=== PATIENT | female | born 1950 | race African-American/Black ===

== ENCOUNTER 2021-08-16 11:47 | Outpatient (CLI) | payer MEDICARE, SELFPAY ==
--- NOTE | 2021-08-16 | ECG_ITS ---
Measurements Intervals Clark Rate: 96 P: 21 CT: 205 QRS: -50 QRSD: 115 T: 63 QT: 382 QTc: 484 Interpretive Statements SINUS RHYTHM LEFT ANTERIOR FASCICULAR BLOCK VOLTAGE CRITERIA FOR LVH MINIMAL Q WAVES- HIGH LATERAL LEADS ABNORMAL ECG Electronically Signed On 08-16-2021 13:31:37 PUMP ERECTOR by Florencio Barker D.O.
== END 2021-08-16 11:48 | disposition home or self-care (01) ==
PROVIDERS: PCP Family Medicine; Visit Provider Orthopaedic Surgery
DX: M17.12 Unilateral primary osteoarthritis, left knee (principal); Z01.818 Encounter for other preprocedural examination; I44.4 Left anterior fascicular block
CPT/HCPCS: 93005

== ENCOUNTER 2021-08-29 14:53 | Outpatient (CLI) | payer MEDICARE, SELFPAY ==
--- NOTE | ~2021-08-29 | XR_ITS ---
EXAMINATION: XR shoulder RT min 2V DATE: 08/29/2021 15:17 INDICATION: Right shoulder pain. TECHNIQUE: 4 views of right shoulder were obtained. COMPARISON: None. FINDINGS: Bone alignment is normal. No fracture. There is mild osteoarthritis of glenohumeral joint a nd severe osteoarthritis of acromioclavicular joint. There is a loose body in the glenohumeral joint. IMPRESSION: 1. Polyarticular osteoarthritis. 2. Loose body in glenohumeral joint. Reviewed, dictated and finalized at location A. CLEANER OPERATOR
== END 2021-08-29 14:54 | disposition home or self-care (01) ==
PROVIDERS: PCP Family Medicine; Visit Provider Physician Assistant
DX: M19.011 Primary osteoarthritis, right shoulder (principal); M24.011 Loose body in right shoulder
CPT/HCPCS: 73030

== ENCOUNTER 2021-09-26 10:25 | Outpatient (CLI) | payer MEDICARE, SELFPAY ==
--- NOTE | ~2021-09-26 | XR_ITS ---
EXAMINATION: XR lumbar spine min 4V DATE: 09/26/2021 11:05 INDICATION: Sciatica, unspecified site, low back pain TECHNIQUE: Anteroposterior, lateral, and bilateral oblique views of the lumbar spine, and cone-down l ateral view of the lumbosacral junction were obtained. COMPARISON: None. FINDINGS: There are 4 mm of anterolisthesis of L4 on L5. Vertebral body alignment is otherwise mainta ined. There is severe loss of intervertebral disc space height from L2-3 through L5-S1. The vertebral body heights are maintained. There is severe facet osteoarthritis throughout the lumbar spine. No fr acture is identified. Small degenerative osteophytes project from the anterior endplates of multiple vertebral bodies. Surgical clips in the right upper quadrant are likely from prior cholecystectomy. IMPRESSION: 1. Severe lumbar spondylosis without acute findings. Reviewed, dictated and finalized at location B. HNUT DOUGH MIXER
--- NOTE | ~2021-09-26 | XR_ITS ---
EXAMINATION:XR cervical spine 4-5V DATE: 09/26/2021 11:05 INDICATION: Cervical radiculopathy TECHNIQUE: AP, lateral, lateral swimmers and odontoid views of the cervical spine are provided. COMPARISON: None FINDINGS: There are 3 mm of anterolisthesis of C3 on C4 and 3 mm of retrolisthesis of C5 on C6. There is severe loss of intervertebral disc space height from C3-4 through C7-T1. The vertebral body heigh ts are maintained. No fracture is identified. There is severe multilevel facet and uncovertebral join t osteoarthritis. IMPRESSION: 1. Severe cervical spondylosis without acute findings. Reviewed, dictated and finalized at location B. SFER MAN
== END 2021-09-26 10:26 | disposition home or self-care (01) ==
PROVIDERS: PCP Family Medicine; Visit Provider Family Medicine
DX: M54.30 Sciatica, unspecified side (principal); M47.22 Other spondylosis with radiculopathy, cervical region; M47.896 Other spondylosis, lumbar region
CPT/HCPCS: 72050; 72110

== ENCOUNTER 2021-10-10 00:09 | Day surgery (SDC) | payer MEDICARE, SELFPAY ==
[2021-09-29 13:12] VITALS: BMI 33.5
[2021-10-10 07:43] VITALS: BP 125/64; PULSE 86; RESP 16; TEMP 36.3; O2SAT 99; BMI 32.0
[2021-10-10] MEDS: LACTATED RINGERS 1,000 ML 150 ML IV CONT (08:05)
--- NOTE | 2021-10-10 08:06 | P.PNAN_ITS ---
Anes - Initial Pre Proc Eval Procedure: Operation Date: 10/10/21 09:00 Proposed Procedures p Screening Colonoscopy - Nasir Wilkerson MD Date/Time: 10/10/21 08:06 Surgeon: Nasir Wilkerson MD Pre Op Diagnosis: neoplasm screening Patient Data Age: 71 Gender: F Height: 1.73 m Weight: 95.6 kg Last Vital Signs Temp 36.3 C L 10/10/21 07:43 Pulse 86 10/10/21 07:43 Resp 16 10/10/21 07:43 BP 125/64 10/10/21 07:43 Pulse Ox 99 10/10/21 07:43 Allergies Allergy/AdvReac Type Severity Reaction Status Date / Time No Known Allergies Allergy Verified 10/10/21 07:54 Home Medications Medication Instructions Recorded Confirmed Type meloxicam 15 mg tablet 15 mg PO DAILY #90 tablet 06/12/21 10/10/21 Rx triamterene 37.5 1 tablet PO QAM #90 tablet 06/12/21 10/10/21 Rx mg-hydrochlorothiazide 25 mg tablet gabapentin 300 mg capsule 600 mg PO DAILY #90 cap 09/26/21 10/10/21 Rx hydrocodone 5 mg-acetaminophen 325 1 tablet PO Q8H PRN #21 tablet 09/26/21 10/10/21 Rx mg tablet Patient hx anesthesia problems: none Family hx anesthesia problems: none Results Review: All pre-operative results and documents have been reviewed as part of the pre-operative evaluation. [facility] Past Medical History Medical History Encounter for immunization Fatigue Hypertension Knee osteoarthritis Nail deformity Obesity (BMI 30-39.9) Sciatica Seborrheic keratosis Family History Family History Father Family history of emphysema Patient's father is Mother Patient's mother is Unknown Hypertension Social History Social History Smoking status: Never smoker Second hand tobacco smoke exposure: No Alcohol intake: never Substance use: never Substance use type: does not use Living arrangements: with family Gender identity (if verbalized by the patient): Female Spiritual care concerns: No Anes - Eval Final PreProcedure Day of Procedure 10/10/21 08:06 Patient weight: obese Heart: regular rate and rhythm Lungs: clear to auscultation Airway: Mallampati scale class II Neurological: alert and oriented Last oral intake: >/= 8 hours ASA classification: II Emergent: no Anesthetic plan: proceed Anesthesia type and monitoring: general GIVS and standard monitoring Results Review: All pre-operative results and documents have been reviewed as part of the pre-operative evaluation. Informed Consent: The patient's anesthetic plan and its attendant risks and benefits were discussed with the patient/family/POA. Questions were solicited and answers provided to the satisfaction of the patient/family/POA.
--- NOTE | 2021-10-10 09:00 | PM.HPGS ---
History of Present Illness History of Present Illness Consent: Risks, benefits, and alternatives have been discussed and questions answered. Patient agrees to proceed with procedure. Chief complaint: neoplasm screening Narrative: Dang Ibrahim is a 71 year old female here for screening colonoscopy, last one about 10 years ago Review of Systems Constitutional: Constitutional: Denies headache(s) and Denies weakness Eyes: Eyes: Denies blurry vision ENT: Reports Normal hearing present, Denies headache(s) and Denies neck pain Cardiovascular: Cardiovascular: Denies chest pain and Denies dyspnea Respiratory: Respiratory: Denies dyspnea Gastrointestinal: Gastrointestinal: Reports no additional gastrointestinal complaints Genitourinary: Genitourinary: Denies dysuria Musculoskeletal: Musculoskeletal: Denies neck pain Integumentary/Breasts: Skin/Breast: Denies dry skin Neurologic: Reports Normal hearing present, Denies headache(s) and Denies weakness Psychiatric: Psychiatric: Denies anxiety Endocrine: Endocrine: Denies change in body appearance Hematologic/Lymphatic: Hematologic/Lymphatic: Denies easy bleeding Allergic/Immunologic: Allergic/Immunologic: Denies urticaria PMFSH Past Medical History Medical History Encounter for immunization Fatigue Hypertension Knee osteoarthritis Nail deformity Obesity (BMI 30-39.9) Sciatica Seborrheic keratosis Family History Family History Father Family history of emphysema Patient's father is Mother Patient's mother is Unknown Hypertension Social History Social History Smoking status: Never smoker Second hand tobacco smoke exposure: No Alcohol intake: never Substance use: never Substance use type: does not use Living arrangements: with family Gender identity (if verbalized by the patient): Female Spiritual care concerns: No Meds Home Medications and Allergies Home Medications Medication Instructions Recorded Confirmed Type meloxicam 15 mg tablet 15 mg PO DAILY #90 tablet 06/12/21 10/10/21 Rx triamterene 37.5 1 tablet PO QAM #90 tablet 06/12/21 10/10/21 Rx mg-hydrochlorothiazide 25 mg tablet gabapentin 300 mg capsule 600 mg PO DAILY #90 cap 09/26/21 10/10/21 Rx hydrocodone 5 mg-acetaminophen 325 1 tablet PO Q8H PRN #21 tablet 09/26/21 10/10/21 Rx mg tablet Allergies Allergy/AdvReac Type Severity Reaction Status Date / Time No Known Allergies Allergy Verified 10/10/21 07:54 Vital Signs Vital Signs - 24 hr 10/10/21 07:43 Temperature 97.4 F L Pulse Rate 86 Respiratory Rate 16 Blood Pressure 125/64 Pulse Oximetry 99 Exam Const: General: comfortable and no acute distress HENMT: General nose exam: Normal nares present Eyes: General: appearance normal, both eyes and all related structures Neck: Neck: no JVD Resp: Auscultation: clear to auscultation bilaterally Cardio: Rate: regular rate Rhythm: regular rhythm GI: Inspection: non-distended GI Palp: Yes Soft to palpation Skin: General skin exam: normal color Neuro: General: gait normal Speech: normal speech Extrem: General: normal to inspection Psych: Mental Status: mental status grossly normal Assessment and Plan Assessment and plan (1) Encounter for screening for malignant neoplasm of colon: Code(s): Z12.11 - Encounter for screening for malignant neoplasm of colon Status: Acute Assessment and Plan: colonoscopy
[2021-10-10 09:20] VITALS: BP 109/58; PULSE 80; RESP 20; O2SAT 96
[2021-10-10 09:30] VITALS: BP 117/70; PULSE 70; RESP 20; O2SAT 97
[2021-10-10 09:40] VITALS: BP 126/71; PULSE 65; RESP 21; O2SAT 100
== END 2021-10-10 09:51 | disposition home or self-care (01) ==
PROVIDERS: PCP Family Medicine; Visit Provider Internal Medicine Gastroenterology
PROC: 0DJD8ZZ Inspection of Lower Intestinal Tract, Via Natural or Artificial Opening Endoscopic (ICD-10-PCS; CPT 45378; principal; 2021-10-10 09:00)
DX: Z12.11 Encounter for screening for malignant neoplasm of colon (principal); K57.30 Diverticulosis of large intestine without perforation or abscess without bleeding; K64.8 Other hemorrhoids; R53.83 Other fatigue; I10 Essential (primary) hypertension; L82.1 Other seborrheic keratosis; E66.9 Obesity, unspecified; Z68.32 Body mass index [BMI] 32.0-32.9, adult; M17.10 Unilateral primary osteoarthritis, unspecified knee
CPT/HCPCS: G0121; J2704; J7120

== ENCOUNTER 2021-10-11 10:06 | Outpatient (CLI) | payer MEDICARE, SELFPAY ==
[2021-10-11 11:15] LABS: Basophils Absolute Auto 0.1 K/mm3 (0.0-0.1); Basophils Percent Auto 0.5 % (0.2-1.2); Eosinophils Absolute Auto 0.2 K/mm3 (0-0.3); Eosinophils Percent Auto 1.5 % (0-4.4); Hematocrit 36.9 % (37.0-47.0); Hemoglobin 12.2 g/dL (12.0-15.0); Immature Granulocyte Absolute 0.03 K/mm3 (0.00-0.031); Immature Granulocyte Percent A 0.3 % (0-0.5); Lymphocytes Absolute Auto 2.93 K/mm3 (0.9-3.2); Lymphocytes Percent Auto 27.6 % (18.3-44.2); Mean Corpuscular HGB Conc 33.1 g/dl (32-36); Mean Corpuscular Volume 90.9 fl (80-100); Mean Platelet Volume 9.2 fl (7.4-10.4); Monocytes Absolute Auto 0.7 K/mm3 (0.1-0.6); Monocytes Percent Auto 6.7 % (2.6-8.5); Neutrophils Absolute Auto 6.7 K/mm3 (1.3-6.7); Neutrophils Percent Auto 63.4 % (45.5-73.1); Platelet Count Result 292 k/mm3 (150-375); Red Blood Count 4.06 M/mm3 (4.2-5.4); White Blood Count 10.6 K/mm3 (4.5-10.0)
[2021-10-11 11:25] LABS: Albumin Level 4.3 g/dL (3.5-5.1)
[2021-10-11 11:27] LABS: Anion Gap 6 mmol/L (8-16); Blood Urea Nitrogen 20 mg/dL (7-17); Calcium 9.5 mg/dL (8.4-10.2); Carbon Dioxide 33 mmol/L (22-30); Chloride 101 mmol/L (98-107); Estimated Glomerular Filt Rate 59; Glucose 97 mg/dL (65-110); Potassium 3.5 mmol/L (3.4-5.0); Sodium 140 mmol/L (137-145)
[2021-10-11 11:27] LABS: Urine Cotinine NEGATIVE
== END 2021-10-11 10:07 | disposition home or self-care (01) ==
LOC: ANHSURGERY 10:09
PROVIDERS: Anesthesiology; PCP Family Medicine; Visit Provider Orthopaedic Surgery
DX: M17.12 Unilateral primary osteoarthritis, left knee (principal); I10 Essential (primary) hypertension; Z01.818 Encounter for other preprocedural examination
CPT/HCPCS: 36415; 80048; 80307; 82040; 83036; 85025; 87081

== ENCOUNTER 2021-11-08 15:36 | Observation (INO) | payer MEDICARE, SELFPAY ==
[2021-10-11 10:15] VITALS: BMI 35.2
--- NOTE | 2021-10-11 10:35 | PC.NURSE ---
Report to the Outpatient Waiting Room, entrance under the green pavilion located off [facility], at time __0900 on date __11/07/21 . OR Time: _1100 . - You and your visitor will be asked a series of questions to screen for COVID 19 for your protection. - A mask is required within the hospital. Preoperative COVID Testing Requirements: No COVID Test needed if: (proof is required; if not received patient will have Rapid Test prior to entry) - Patient has received COVID Vaccine at least 14 days prior to procedure date or - Patient has positive COVID test result within last 90 days of surgery date. COVID Test needed if above criteria is not met If not COVID vaccinated a COVID test must be conducted within 72 hours of surgery and patient is asked to isolate self from time of testing until procedure. You will go to the [facility] for your COVID testing. The [facility] site is located at the corner of [address] [facility]. You will only be called if COVID results are positive and your surgeon may reschedule your elective surgery date. Patients may have clear liquids (water, carbonated beverages, clear teas, apple juice) until 3 hours prior to surgery with a maximum of 20 ounces. - No food from midnight until time of surgery - Infants may have breast milk until 4 hours before surgery, infant formula 6 hours prior to surgery. - Children will be allowed to drink immediately following surgery. If applicable, please bring a bottle or sippy cup to assist with drinking. Juice, water, soda, and popsicles are readily available. For infants on formula, please bring formula the day of surgery. Pacifiers are allowed. Take the following medications with a SIP of water the morning of surgery: _NONE Medications to discontinue per physician ____MELOXICAM 7 DAYS PRE OP,ALL VITAMINS AND SUPPLEMENTS 3 DAYS PREOP Date to take last dose__MELOXICAM 10/30/21____ALL VITAMINS 11/03/21 Please no make-up, nail malaysian, hairspray, perfume, deodorant, or body powder the day of surgery. No jewelry (including any body piercings) or valuables the day of surgery, leave them at home. Please take a shower or bath the night before, or the morning of, surgery with an antibacterial soap. Wear comfortable, loose fitting clothing. Children are encouraged to wear pajamas. - Jewelry must be removed prior to entering the operating room. Rings and piercings that are not removed may be cut off. - The hospital will not accept responsibility for valuables. - Please leave all valuables, including medications, at home the day of surgery. If you are going home after surgery, a licensed dump truck driver must drive you home. - NO public transportation without another adult. - We recommend that an adult stay with you for 24 hours following discharge. - We also recommend that you do not drive, make important decision, drink alcoholic beverages, or take any drugs that were not prescribed by your health care provider for at least 24 hours after your discharge time. For Pediatric surgeries, we recommend two adults accompany the child home (only one inside the building at this time). One visitor will be allowed to accompany the patient into the hospital. Patients visitor will be instructed to remain with patient at all times or leave the building. We will allow the visitor to come back to the postoperative area when patient is ready. Follow any additional instructions given to you from your surgeon. VERBAL AND WRITTEN instructions given to _PATIENT and asked if any additional questions and then verbalized understanding. Patient advised to call surgeon office or pre surgery nurse liaison [phone] if any additional questions.
[2021-10-11 10:55] VITALS: BP 125/65; PULSE 74; RESP 18; TEMP 36.6; O2SAT 97
--- NOTE | 2021-11-06 14:22 | WPDANESEPPF ---
Anes - Initial Pre Proc Eval Procedure: Operation Date: 11/07/21 11:00 Proposed Procedures p Left Total Knee Arthroplasty - Reagan Winter MD <Marcelo Craig MD - Last Filed: 11/07/21 10:34> Date/Time: 11/06/21 14:22 <Marcelo Craig MD - Last Filed: 11/07/21 10:34> Surgeon: Reagan Winter MD <Marcelo Craig MD - Last Filed: 11/07/21 10:34> Pre Op Diagnosis: Prim O.A. Lt Knee <Marcelo Craig MD - Last Filed: 11/07/21 10:34> Patient Data Age: 71 Gender: F Height: 1.65 m Weight: 96 kg <Marcelo Craig MD - Last Filed: 11/07/21 10:34> Last Vital Signs Temp 36.6 C 10/11/21 10:55 Pulse 74 10/11/21 10:55 Resp 18 10/11/21 10:55 BP 125/65 10/11/21 10:55 Pulse Ox 97 10/11/21 10:55 <Marcelo Craig MD - Last Filed: 11/07/21 10:34> Allergies Allergy/AdvReac Type Severity Reaction Status Date / Time No Known Allergies Allergy Verified 11/07/21 10:05 <Marcelo Craig MD - Last Filed: 11/07/21 10:34> Home Medications Medication Instructions Recorded Confirmed Type meloxicam 15 mg tablet 15 mg PO DAILY #90 tablet 06/12/21 11/07/21 Rx triamterene 37.5 1 tablet PO QAM #90 tablet 06/12/21 11/07/21 Rx mg-hydrochlorothiazide 25 mg tablet hydrocodone 5 mg-acetaminophen 325 1 tablet PO Q8H PRN #21 tablet 09/26/21 11/07/21 Rx mg tablet gabapentin 600 mg PO HS 10/11/21 11/07/21 History [id number]-calcium carb-K1 1 tablet PO DAILY 10/11/21 11/07/21 History [One-A-Day Women's 50 Plus] terbinafine HCl 250 mg PO MONTHLY 10/11/21 11/07/21 History <Marcelo Cragi MD - Last Filed: 11/07/21 10:34> Patient hx anesthesia problems: none <Albert Kimble DO - Last Filed: 11/07/21 10:20> Family hx anesthesia problems: none <Albert Kimble DO - Last Filed: 11/07/21 10:20> Results Review: All pre-operative results and documents have been reviewed as part of the pre-operative evaluation. <Marcelo Craig MD - Last Filed: 11/07/21 10:34> [facility] Past Medical History Medical History: Medical History (Updated 11/06/21 @ 14:23 by Marcelo Craig MD) Chronic narcotic use Encounter for immunization Fatigue Hypertension Knee osteoarthritis Nail deformity Obesity (BMI 30-39.9) Sciatica Seborrheic keratosis <Marcelo Craig MD - Last Filed: 11/07/21 10:34> Family History Family History: Family History Father Family history of emphysema Patient's father is Mother Patient's mother is Unknown Hypertension <Marcelo Craig MD - Last Filed: 11/07/21 10:34> Social History Social History: Social History Smoking status: Never smoker Second hand tobacco smoke exposure: No Additional smoking assessment comments: DENIES ANY FORM OF TOBACCO USE Alcohol intake: never Substance use: never Substance use type: does not use Living arrangements: alone Gender identity (if verbalized by the patient): Female Spiritual care concerns: No <Marcelo Craig MD - Last Filed: 11/07/21 10:34> Anes - Eval Final PreProcedure Day of Procedure 11/06/21 14:22 <Marcelo Craig MD - Last Filed: 11/07/21 10:34> Patient weight: obese <Marcelo Craig MD - Last Filed: 11/07/21 10:34> Heart: regular rate and rhythm <Marcelo Craig MD - Last Filed: 11/07/21 10:34> Lungs: clear to auscultation and normal air movement <Marcelo Craig MD - Last Filed: 11/07/21 10:34> Airway: Mallampati scale class II <Marcelo Craig MD - Last Filed: 11/07/21 10:34> Neurological: alert and oriented <Marcelo Craig MD - Last Filed: 11/07/21 10:34> Last oral intake: >/= 8 hours <Marcelo Craig MD - Last Filed: 11/07/21 10:34> ASA classification: III <Marcelo Echevarria
--- NOTE | 2021-11-06 14:23 | WPDANESPNB ---
Anes - Peripheral Nerve Block Date/Time: 11/06/21 14:23 I have discussed with the patient/family/POA the placement of a peripheral nerve block for post-operative pain management, including associated risks, benefits, complications, and side effects. Alternative methods of post-operative analgesia were detailed. Questions were solicited and answers provided to the satisfaction of the patient/family/POA. Time-Out: A pre-procedural Time-Out was completed immediately before starting the procedure and confirmed: Patient Identification, Site, Procedure, Patient Position and the Availability of Requisite Equipment. Clinical Indications: Acute post-operative pain management requested by the operative surgeon. Nerve Block Insertion Note Anes-nerve block: adductor canal left Patient position: supine Skin prep: chlorhexidine Needle: 22 gauge, stimulating, insulated echogenic needle. Needle length: 80 mm Technique: ultrasound Technique comment: in plane Injectate: bupivacaine 0.5% with epi 5 mcg/ml (30cc) Observations: tolerated well Complications: none Procedure start time:: 1040 Procedure end time:: 104
[2021-11-07] VITALS (15 sets, daily range): BP systolic 124–161; BP diastolic 63–82; PULSE 76–111; RESP 12–17; TEMP 35.8–37.2; O2SAT 94–100
--- NOTE | 2021-11-07 07:19 | WPDHPUPDATE1 ---
History and Physical Update Update Date/Time: 11/07/21 07:19 History and Physical has been reviewed, including an updated exam of the patient. There are NO changes in the patient's condition. Risks, benefits, and alternatives have been discussed and questions answered. Patient agrees to proceed with procedure.
[2021-11-07] MEDS: ACETAMINOPHEN 500 MG TABLET 1000 MG PO (10:17)
[2021-11-07] MEDS: LACTATED RINGERS 1,000 ML 30 ML IV CONT ×2 (10:25→14:26)
[2021-11-07] MEDS: TRANEXAMIC ACID 1,000MG/ISO100 1,000 MG/100 ML BAG 200 MG IVPB (10:35)
[2021-11-07] MEDS: ceFAZolin 2 GM/D5W 50 ML 2 GM/50 ML BAG IVPB ×2 (10:54→18:35)
[2021-11-07] MEDS: fentaNYL CITRATE INJ (*CRX) 100 MCG/2 ML VIAL 25 MCG IV PUSH (14:36)
--- NOTE | 2021-11-07 15:34 | ADMGEN ---
This patient, Dang Ibrahim, was admitted to -. Patient/family oriented to hospital policies and general routines including ID bracelet, bed and alarms, visiting hours, pain management, procedures, bathroom and other care routines, personal items, smoking policy, room service/diet, and visiting hours. Information on how to activate the Rapid Response Team has been discussed. Patient/Family are encouraged to report perceived risks to care and to ask questions if they do not understand what they are told or what they should do.
[2021-11-07] MEDS: SODIUM CHLORIDE 0.9% IV 1,000 ML 125 ML IV CONT (15:46)
--- NOTE | 2021-11-07 16:02 | W.PM.PROC2 ---
Procedure Note - Detailed Date of Procedure 11/07/21 Pre-op Diagnosis Osteoarthritis left knee. Post-op Diagnosis Same Procedure Performed Left total knee arthroplasty. Surgeon Reagan Winter MD Resident Engineer Marcella Cuevas PA-C Anesthesia General Indications End-stage arthritis of the knee with severe varus deformity and proximal medial tibial bone loss. Findings Complex reconstruction. Severe contracture 10? to 90?. Varus deformity 15?. Extensive osteophytes. Large cystic changes in the femoral condyles and medial tibia. Extensive posterior medial and medial tibial erosion. 5 mm augments required medial. 50 mm stems both on the femur and tibia due to the significant bony changes and cystic disease. Extensive medial release required. Total stabilized tibial insert used. Description of Procedure The patient was given a nerve block preoperatively, and then brought to the operating room. A general anesthetic was administered. The leg was prepped and draped in the usual sterile fashion. The limb was elevated and the tourniquet inflated to 300 mmHg during the procedure. A longitudinal incision was created along the medial border of the patella and patellar tendon, and a trivector approach to the knee was performed. A large medial release was taken. The knee was then flexed. The osteophytes were carefully removed. The intramedullary guide was placed in the femoral canal. The distal femoral resection was then taken with the oscillating saw. The collateral ligaments were carefully protected. The tibia was carefully exposed. The jig was applied, and the proximal tibia was resected according to the preoperative plan, with a medial 5mm step cut to account for the medial bone loss, and necrotic /sclerotic bone. The knee was balanced in extension. The anterior cruciate ligament and meniscal remnants were removed. The posterior cruciate ligament was sacrificed. The patella was measured. Patellar resection was carried out with the oscillating saw. The femur was sized and rotation assessed using a combination of gap balancing, posterior referencing, and the AP axis. The 4 in 1 cutting block, and the box cut guide were used to finish the femoral cuts after equal gaps were assured. The femur was reamed for the cement stems. The osteophytes were carefully removed from the back of the knee. The knee was copiously irrigated with antibiotic solution periodically throughout the procedure. The meniscal remnants were removed. The spacer block was used to confirm equal flexion and extension gaps. Extensive medial release was required. The tibia was sized and broached. Central drilling for the short stem was performed. The bony surfaces were prepared for cementing with pulsatile lavage. The real tibial was cemented, followed by the femoral, and patellar components. Excess cement was carefully removed. Patellar tracking was carefully assessed. No additional releases were required. The real poly insert was placed. The wound was closed with #1 Vicryl suture, #2 Quill suture, 0-Quill suture, and 2-0 Quill suture followed by Steri-Strips. A sterile bulky dressing was applied. Meticulous hemostasis was maintained throughout the procedure. There were no complications. The patient was extubated and brought to the recovery room in stable condition after the application of sterile dressing with Rob bandage. Implants TrackVia Triathlon knee system, [place] base plate cemented tibia size 5, Posterior cruciate stabilized cemented femoral component size 5 ,and an 13 mm total stabilized polyethylene insert. 35mm polyethylene patella component. 50 mm stem, 12 mm diameter, for the femur and tibia. 5 mm titanium metal augment for the medial tibia. Estimated Blood Loss 100 Drains No Packing No Pathology None sent Complications No immediate complications Condition Stable Disposition PACU
[2021-11-07] MEDS: SENNA/DOCUSATE SODIUM TABLET 2 TAB PO (17:33)
[2021-11-07] MEDS: ASPIRIN 81 MG ENTERIC TABLET PO (17:33)
[2021-11-07] MEDS: GABAPENTIN 300 MG CAPSULE 600 MG PO (20:49)
--- NOTE | ~2021-11-08 | XR_ITS ---
EXAMINATION: XR chest 1V portable DATE: 11/09/2021 12:48 INDICATION: Fever. TECHNIQUE: A single frontal view of the chest was obtained. COMPARISON: None. FINDINGS: There is mild atelectasis in right lower lung zone. No pleural effusion or pneumothorax. Th e heart size is normal. IMPRESSION: 1. Mild atelectasis in right lower lung zone. Reviewed, dictated and finalized at location B.
--- NOTE | ~2021-11-08 | CT_ITS ---
EXAMINATION: CTA chest PE protocol DATE: 11/09/2021 17:53 INDICATION: Tachycardia, fever TECHNIQUE: Computed tomography angiography (CTA) of the chest was performed with 100 mL Omnipaque-350 intravenous contrast timed to evaluate the pulmonary arteries. Coronal maximum intensity projection 3D-reconstructions were created by the technologist. The dose-length product (DLP) was 552.49 mGy-cm. Automated exposure control and iterative reconstruction technique were employed. COMPARISON: None. FINDINGS: The pulmonary arteries are well-opacified. No pulmonary embolism is identified. There is mi ld atelectasis in the right lower lobe. There is no pleural effusion or pneumothorax. No pathological ly enlarged thoracic lymph nodes are identified. The heart size is normal. IMPRESSION: 1. No pulmonary embolus identified. Reviewed, dictated and finalized at location F.
--- NOTE | ~2021-11-08 | US_ITS ---
EXAMINATION: US venous doppler LE EXAM DATE: 11/09/2021 11:08 INDICATION: Tachycardia. TECHNIQUE: Multiple grayscale, color flow and Doppler images of the lower extremity deep venous syste ms bilaterally were obtained and reviewed. There is no prior study for comparison. FINDINGS: Right side: The right common femoral, femoral and profunda veins demonstrate normal color flow, respi ratory variation, augmentation and compressibility. Compressibility, color flow confirmed within the right popliteal, posterior tibial, peroneal, and greater saphenous veins. Left side: The left common femoral, femoral and profunda veins demonstrate normal color flow, respira tory variation, augmentation and compressibility. Compressibility, color flow confirmed within the l eft popliteal, posterior tibial, peroneal, and greater saphenous veins. IMPRESSION: 1. No lower extremity deep venous thrombosis bilaterally. Reviewed, dictated and finalized at location A.
--- NOTE | ~2021-11-08 | XR_ITS ---
EXAMINATION: XR knee LT 2V DATE: 11/07/2021 14:35 INDICATION: Total left knee arthroplasty. Postop. TECHNIQUE: 2 views of left knee were obtained. COMPARISON: Left knee radiographs 05/29/2021 FINDINGS: There is a total left knee arthroplasty with patellar resurfacing in near-anatomic alignmen t. No fracture. There is gas in the knee joint and soft tissues, consistent with recent surgery. IMPRESSION: 1. Total left knee arthroplasty in near-anatomic alignment. Reviewed, dictated and finalized at location B.
[2021-11-08] MEDS: ceFAZolin 2 GM/D5W 50 ML 2 GM/50 ML BAG IVPB ×2 (01:54→10:31)
[2021-11-08 03:34] VITALS: BP 118/61; PULSE 98; RESP 17; TEMP 36.4; O2SAT 97
[2021-11-08] MEDS: oxyCODONE HCL (*CRX) 5 MG TAB IR PO ×2 (07:50→12:17)
[2021-11-08] MEDS: MELOXICAM 7.5 MG TABLET 15 MG PO (07:51)
[2021-11-08] MEDS: ASPIRIN 81 MG ENTERIC TABLET PO ×2 (07:51→16:36)
[2021-11-08] MEDS: SENNA/DOCUSATE SODIUM TABLET 2 TAB PO ×2 (07:52→16:37)
[2021-11-08] MEDS: polyethylene glycoL 3350 17 GM POWD.PACK PO (07:52)
[2021-11-08] MEDS: TRIAMTERENE 37.5 MG/HCTZ 25 MG (MAXZIDE) TABLET 1 TAB PO (07:52)
[2021-11-08 10:12] VITALS: BP 121/53; PULSE 93; RESP 16; TEMP 36.3; O2SAT 97
--- NOTE | 2021-11-08 11:02 | PCCCNOTE ---
On 11/08/21, the student, [Myriam Min], provided care and completed [facility] documentation on this patient. I have reviewed the student's documentation and agree with the findings.
[2021-11-08 14:14] VITALS: BP 131/71; PULSE 108; RESP 16; TEMP 36.8; O2SAT 98
[2021-11-08] MEDS: CYCLOBENZAPRINE HCL 10 MG TABLET PO (15:25)
--- NOTE | 2021-11-08 16:18 | PM.PNORT ---
Progress Note: A&P Assessment and Plan (1) Status post total left knee replacement: Code(s): Z96.652 - Presence of left artificial knee joint Status: Acute Assessment and Plan: Postop day 1: Left total knee arthroplasty. Complex reconstruction using 5mm augment, tibial and femoral stems, and extensive MCL release. Having trouble with pain control postoperatively. No numbness or tingling. Will continue to monitor overnight. Consider discharge tomorrow depending on pain control. DVT prophylaxis: 81 mg baby aspirin b.i.d. for 14 days. Subjective Subjective Date/Time Seen: 11/08/21 08:00 Patient complains of pain in the operative knee. States she has had some trouble with ambulating with PT. No other complaints at this time. Review of Systems Constitutional: Constitutional: Denies difficulty sleeping, Denies fatigue, Denies fever(s), Denies headache(s) and Denies night sweats Eyes: Eyes: Denies loss of vision ENT: Denies dizziness, Denies headache(s) and Denies hearing loss Cardiovascular: Cardiovascular: Denies irregular heart rhythm and Denies dyspnea Respiratory: Respiratory: Denies cough and Denies dyspnea Gastrointestinal: Gastrointestinal: Denies change in bowel habits, Denies diarrhea, Denies nausea and Denies vomiting Genitourinary: Genitourinary: Denies nocturia, Denies dysuria and Denies urinary incontinence Musculoskeletal: Musculoskeletal: Denies abnormal gait Neurologic: Denies abnormal gait, Denies dizziness, Denies headache(s) and Denies loss of vision Psychiatric: Psychiatric: Denies anxiety and Denies depression Endocrine: Endocrine: Denies cold intolerance, Denies fatigue and Denies heat intolerance Exam Narrative: 71-year-old overweight female. Resting comfortably in chair. Alert and oriented x3. No acute distress. Wearing compression socks bilaterally. Dressing intact with small dime size bloody drainage. Moderate swelling. Slight ecchymosis. No erythema. No hematoma. No warmth. Range of motion limited due to pain. Calf nontender. Neurologic status intact. No varicosities. Distal pulses palpable. Light touch sensation intact. Good capillary refill. Objective Data Vital Signs Vital Signs: Vital Signs - 24 hr 11/07/21 16:20 11/07/21 18:30 11/07/21 19:45 Temperature 97.5 F L 97.3 F L 97.1 F L Pulse Rate 97 91 88 Respiratory Rate 16 16 16 Blood Pressure 124/65 153/76 H 130/63 Pulse Oximetry 100 98 96 11/07/21 20:00 11/07/21 23:26 11/08/21 03:34 Temperature 96.4 F L 97.6 F Pulse Rate 91 96 98 Respiratory Rate 16 17 17 Blood Pressure 129/63 118/61 Pulse Oximetry 98 99 97 11/08/21 10:12 11/08/21 14:14 Temperature 97.4 F L 98.3 F Pulse Rate 93 108 H Respiratory Rate 16 16 Blood Pressure 121/53 L 131/71 Pulse Oximetry 97 98 Intake/Output Intake/Output: Intake & Output 11/05/21 11/06/21 11/07/21 11/08/21 23:59 23:59 23:59 23:59 Intake Total 2140 470 Output Total 450 Balance 1690 470 Meds/Results Medications: Active Medications Generic Name Dose Route Start Last Admin Trade Name Freq PRN Reason Stop Dose Admin Acetaminophen 1,000 mg 11/07/21 15:25 Acetaminophen 500 Mg Tablet PO Q6H PRN Pain Rated 1-3 Aspirin 81 mg 11/07/21 17:00 11/08/21 07:51 Aspirin 81 Mg Enteric Tablet PO 81 mg BID DAO Administration Cyclobenzaprine HCl 10 mg 11/07/21 15:25 11/08/21 15:25 Cyclobenzaprine Hcl 10 Mg Tablet PO 10 mg Q8H PRN Administration Spasms Diphenhydramine HCl 25 mg 11/07/21 15:25 Diphenhydramine Hcl Inj 50 Mg/Ml Vial IV PUSH Q6H PRN Itching Gabapentin 600 mg 11/07/21 21:00 11/07/21 20:49 Gabapentin 300 Mg Capsule PO 600 mg HS DAO Administration Meloxicam 15 mg 11/08/21 09:00 11/08/21 07:51 Meloxicam 7.5 Mg Tablet PO 12/08/21 08:59 15 mg DAILY DAO Administration Naloxone HCl 0.1 mg 11/07/21 15:25 Naloxone Hcl 0.4 Mg/Ml Vial IV PUSH Q2M P
[2021-11-08] MEDS: oxyCODONE HCL (*CRX) 5 MG TAB IR 10 MG PO ×2 (16:36→20:28)
[2021-11-08 18:08] VITALS: BP 127/61; PULSE 116; RESP 14; TEMP 36.3; O2SAT 94
[2021-11-08 20:00] VITALS: PULSE 116; RESP 14; O2SAT 94
[2021-11-08] MEDS: GABAPENTIN 300 MG CAPSULE 600 MG PO (20:21)
[2021-11-08 20:37] VITALS: BP 159/69; PULSE 118; RESP 14; TEMP 37; O2SAT 95
[2021-11-09] VITALS (12 sets, daily range): BP systolic 104–135; BP diastolic 57–68; PULSE 105–130; RESP 15–18; TEMP 36.1–38.8; O2SAT 94–97
[2021-11-09] MEDS: oxyCODONE HCL (*CRX) 5 MG TAB IR 10 MG PO ×2 (04:55→11:51)
--- NOTE | 2021-11-09 08:23 | PCPTNOTE ---
Attempted to see patient for PT at this time, however patient was eating breakfast.
--- NOTE | 2021-11-09 08:47 | ECG_ITS ---
Measurements Intervals [place] Rate: 120 P: 14 TX: 194 QRS: -66 QRSD: 103 T: 80 QT: 337 QTc: 476 Interpretive Statements SINUS TACHYCARDIA LEFT ANTERIOR FASCICULAR BLOCK [QRS AXIS <= -45, QR IN I, RS IN II] ANTEROSEPTAL MYOCARDIAL INFARCTION , OF INDETERMINATE AGE [40+ ms Q WAVE IN V1-V4] ABNORMAL ECG COMPARED TO ECG 08/16/2021 12:42:39 SINUS TACHYCARDIA NOW PRESENT MYOCARDIAL INFARCT FINDING NOW PRESENT Electronically Signed On 11-09-2021 16:53:27 CDT by Hamlet Pang M.D.
[2021-11-09] MEDS: TRIAMTERENE 37.5 MG/HCTZ 25 MG (MAXZIDE) TABLET 1 TAB PO (08:48)
[2021-11-09] MEDS: SENNA/DOCUSATE SODIUM TABLET 2 TAB PO ×2 (08:48→17:16)
[2021-11-09] MEDS: MELOXICAM 7.5 MG TABLET 15 MG PO (08:48)
[2021-11-09] MEDS: polyethylene glycoL 3350 17 GM POWD.PACK PO (08:48)
[2021-11-09] MEDS: ASPIRIN 81 MG ENTERIC TABLET PO ×2 (08:48→17:16)
--- NOTE | 2021-11-09 09:07 | PM.IMCN ---
Assessment and Plan Assessment and plan (1) Sinus tachycardia: Code(s): R00.0 - Tachycardia, unspecified Status: Acute Assessment and Plan: Patient with mild tachycardia at rest. Telemetry was reviewed showing sinus tachycardia. Etiology includes related to pain, VTE, dehydration, cardiac arrhythmia, hypothyroidism, anemia, cardiac ischemia, withdrawal or infection. Patient receiving narcotics for pain so tachycardia related to pain seems unlikely. Withdrawal also seems unlikely. Will check EKG to exclude atrial flutter. Will check lower extremity venous Dopplers and consider CTA. Check TSH and baseline labs. Consider Echo as well. Further recommendation as course dictates. Thank you so much for allowing me to be apart of this patient's care. (2) Status post total left knee replacement: Code(s): Z96.652 - Presence of left artificial knee joint Status: Acute Assessment and Plan: Patient is postop day 2 from left total knee replacement. And despite the tachycardia otherwise appears to be recovering well. (3) Hypertension: Code(s): I10 - Essential (primary) hypertension Status: Acute Assessment and Plan: Patient is on a diuretic chronically. No lab work here but did have some acute kidney injury noted on 10/11/2021. She could be dehydrated which could explain some of the tachycardia. Will check baseline labs as mentioned above. Continue diuretic for now. (4) Knee osteoarthritis: Code(s): M17.10 - Unilateral primary osteoarthritis, unspecified knee Status: Acute Assessment and Plan: As above. (5) DVT prophylaxis: Code(s): Z29.9 - Encounter for prophylactic measures, unspecified Status: Acute Assessment and Plan: ASA HPI Data of Consult Consult date: 11/10/21 Requesting Physician: Reagan Winter MD Primary Care Provider: Daria Warner MD Consult Narrative Reason for consult: Tachycardia Narrative: Dang Ibrahim is a 71 year old female with hypertension and DJD of the knee here for elective left total knee arthroplasty who was developed tachycardia. Patient has had left knee pain for a long time but worsened over the past year. Left knee was giving out. She has undergone injection, physical therapy and uses meloxicam and hydrocodone for pain. She is followed by Orthopedics and has failed conservative therapy. She had routine preop testing but did not have a stress test prior to her surgery. Patient was admitted and underwent left total knee arthroplasty on 11/07/2021. She tolerated the procedure well. She was started on ASA 81mg BID on 11/07 for DVT prophylaxis. She had mild tachycardia post-op that resolved. Her heart rate remained normal overnight and throughout POD#1 until later in the day when patient had considerable amount of knee pain and was noted be tachycardic with heart rate was high as 118. She denies any chest pain or shortness of breath. No pleuritic chest pain. No palpitations. No thyroid disease. She denies calf pain. Despite her severe left knee pain, she states that she has been able to ambulate with a cane very well at home and was still very active with cooking for herself and cleaning her kitchen. She denies any chest pain with activity prior to admission. No dyspnea on exertion prior to admission. No history of VTE. No family history of VTE. Review of systems otherwise was unremarkable. This morning, heart rate climbed to 130. She was placed on telemetry and hospital service was consulted for this reason. Patient does use hydrocodone but only about once a week on average. No tobacco, alcohol or drug use. No problems with prior surgeries. Review of Systems Review of Systems: All systems reviewed & are unremarkable except as noted in HPI and below PMFSH Past Medical History Medical History (Updated 11/10/21 @ 12:07 by Arpit Stiles MD) Chronic narcotic use En
--- NOTE | 2021-11-09 09:09 | PCPTNOTE ---
Attempted to see patient for PT x2 this A.M., however had interruption x2, once by MNikhil and second time by EKG. PT treatment session unable to be completed this A.M.
[2021-11-09 09:49] LABS: Basophils Percent Auto 0.3 % (0.2-1.2); Eosinophils Percent Auto 0.2 % (0-4.4); Hematocrit 31.4 % (37.0-47.0); Hemoglobin 10.1 g/dL (12.0-15.0); Immature Granulocyte Absolute 0.07 K/mm3 (0.00-0.031); Immature Granulocyte Percent A 0.5 % (0-0.5); Lymphocytes Absolute Auto 2.26 K/mm3 (0.9-3.2); Lymphocytes Percent Auto 15.4 % (18.3-44.2); Mean Corpuscular HGB Conc 32.2 g/dl (32-36); Mean Corpuscular Hemoglobin 29.4 pg (26-34); Mean Corpuscular Volume 91.3 fl (80-100); Mean Platelet Volume 9.8 fl (7.4-10.4); Monocytes Absolute Auto 1.2 K/mm3 (0.1-0.6); Monocytes Percent Auto 8.3 % (2.6-8.5); Neutrophils Absolute Auto 11.1 K/mm3 (1.3-6.7); Neutrophils Percent Auto 75.3 % (45.5-73.1); Platelet Count Result 267 k/mm3 (150-375); Red Blood Count 3.44 M/mm3 (4.2-5.4); Red Cell Distribution Width 13.1 % (11.5-14.5); White Blood Count 14.7 K/mm3 (4.5-10.0)
[2021-11-09 09:59] LABS: Alanine Aminotransferase 20 U/L (4-35); Albumin Level 3.4 g/dL (3.5-5.1); Alkaline Phosphatase 116 U/L (38-126); Anion Gap 6 mmol/L (8-16); Aspartate Amino Transferase 33 U/L (14-36); Blood Urea Nitrogen 15 mg/dL (7-17); Calcium 8.5 mg/dL (8.4-10.2); Carbon Dioxide 30 mmol/L (22-30); Chloride 96 mmol/L (98-107); Estimated CRCL calculation 56 ml/min; Estimated Glomerular Filt Rate > 60; Glucose 143 mg/dL (65-110); Potassium 3.5 mmol/L (3.4-5.0); Sodium 132 mmol/L (137-145)
[2021-11-09 10:10] LABS: Troponin I < 0.012 ng/mL (0.000-0.034)
[2021-11-09] MEDS: ACETAMINOPHEN 500 MG TABLET 1000 MG PO (12:47)
--- NOTE | 2021-11-09 12:47 | PCOTNOTE ---
Attempted to see patient this date, however first attempt, patient was off floor for testing. Second attempt, patient was with physical therapy. Third attempt, patient having increased HR and fever, and RN advised not to see at this time.
--- NOTE | 2021-11-09 12:51 | PCCCNOTE ---
On 11/09/21, the student, [Faina Brownlee ], provided care and completed [facility] documentation on this patient. I have reviewed the student's documentation and agree with the findings.
--- NOTE | 2021-11-09 16:19 | PM.PNORT ---
Progress Note: A&P Assessment and Plan (1) Status post total left knee replacement: Code(s): Z96.652 - Presence of left artificial knee joint Status: Acute Assessment and Plan: Postoperative day 2 status post complex total knee arthroplasty left knee. Moderate pain. Tachycardia. Appreciate hospitalist assistance. Examination Patient spiked a fever. Workup pending. Atelectasis on chest x-ray. Knee wound with moderate swelling. No further drainage. Calf nontender. Neurologic status intact. Diagnostics Postoperative x-rays show satisfactory total knee arthroplasty with tibial augmentation medially and stem prosthesis on the femur and tibia. Impression Complex knee reconstruction. Postoperative issues include tachycardia and fever. Appreciate hospitalist assistance. Consider discharge home tomorrow. Subjective Subjective Date/Time Seen: 11/09/21 16:19 Objective Data Vital Signs Vital Signs: Vital Signs - 24 hr 11/08/21 18:08 11/08/21 20:00 11/08/21 20:37 Temperature 36.3 C L 37.0 C Pulse Rate 116 H 116 H 118 H Respiratory Rate 14 14 14 Blood Pressure 127/61 159/69 H Pulse Oximetry 94 94 95 11/09/21 01:17 11/09/21 04:39 11/09/21 05:54 Temperature 36.9 C 37.0 C Pulse Rate 116 H 130 H 114 H Respiratory Rate 15 16 Blood Pressure 134/67 135/61 Pulse Oximetry 94 95 11/09/21 12:00 11/09/21 12:47 11/09/21 13:32 Temperature 38.8 C H 38.8 C H 38.0 C H Pulse Rate 124 H Respiratory Rate 18 Blood Pressure 135/68 Pulse Oximetry 97 11/09/21 14:30 Temperature 37.9 C H Pulse Rate 125 H Respiratory Rate 16 Blood Pressure 116/57 L Pulse Oximetry 96 Intake/Output Intake/Output: Intake & Output 11/06/21 11/07/21 11/08/21 11/09/21 23:59 23:59 23:59 23:59 Intake Total 2140 1470 500 Output Total 450 600 Balance 1690 870 500 Meds/Results Medications: Active Medications Generic Name Dose Route Start Last Admin Trade Name Freq PRN Reason Stop Dose Admin Acetaminophen 1,000 mg 11/07/21 15:25 11/09/21 12:47 Acetaminophen 500 Mg Tablet PO 1,000 mg Q6H PRN Administration Pain of 1-3 or Fever Aspirin 81 mg 11/07/21 17:00 11/09/21 08:48 Aspirin 81 Mg Enteric Tablet PO 81 mg BID DAO Administration Cyclobenzaprine HCl 10 mg 11/07/21 15:25 11/08/21 15:25 Cyclobenzaprine Hcl 10 Mg Tablet PO 10 mg Q8H PRN Administration Spasms Diphenhydramine HCl 25 mg 11/07/21 15:25 Diphenhydramine Hcl Inj 50 Mg/Ml Vial IV PUSH Q6H PRN Itching Gabapentin 600 mg 11/07/21 21:00 11/08/21 20:21 Gabapentin 300 Mg Capsule PO 600 mg HS DAO Administration Meloxicam 15 mg 11/08/21 09:00 11/09/21 08:48 Meloxicam 7.5 Mg Tablet PO 12/08/21 08:59 15 mg DAILY DAO Administration Naloxone HCl 0.1 mg 11/07/21 15:25 Naloxone Hcl 0.4 Mg/Ml Vial IV PUSH Q2M PRN Opiate Reversal Ondansetron HCl 4 mg 11/07/21 15:25 Ondansetron Inj 4 Mg/2 Ml Vial IV PUSH Q4H PRN Nausea And Vomiting Oxycodone HCl 5 mg 11/07/21 15:25 11/08/21 12:17 Oxycodone Hcl (*Crx) 5 Mg Tab Ir PO 5 mg Q4H PRN Administration Pain Rated 4-6 Oxycodone HCl 10 mg 11/07/21 15:25 11/09/21 11:51 Oxycodone Hcl (*Crx) 5 Mg Tab Ir PO 10 mg Q4H PRN Administration Pain Rated 7-10 Polyethylene Glycol 17 gm 11/08/21 09:00 11/09/21 08:48 Polyethylene Glycol 3350 17 Gm Powd.Pack PO 17 gm QAM DAO Administration Senna/Docusate Sodium 2 tab 11/07/21 17:00 11/09/21 08:48 Senna/Docusate Sodium Tablet PO 2 tab BID DAO Administration Terbinafine HCl 250 mg 11/19/21 09:00 Terbinafine Hcl 250 Mg Tablet PO 11/25/21 09:01 DAILY DAO Triamterene/Hydrochlorothiazide 1 tab 11/08/21 09:00 11/09/21 08:48 Triamterene 37.5 Mg/Hctz 25 Mg (Maxzide) Tablet PO 1 tab QAM DAO Administration Radiology Results: ITS Impressions Knee X-Ray 11/07/21 14:38 IMPRESSION:
[2021-11-09] MEDS: SODIUM CHLORIDE 0.9% IV 1,000 ML 100 ML IV CONT (17:15)
[2021-11-09 17:23] LABS: Appearance Urine Clear (Clear); Bilirubin Urine Negative (Negative); Blood Urine Negative (Negative); Color Urine Yellow (Yellow); Glucose Urine UA Negative (Negative); Ketones Urine 1+ mg/dL (Negative); Leukocyte Esterase Ur Trace LEU/UL (NEGATIVE); Nitrate Urine Negative (Negative); Protein Urine Trace mg/dL (Negative); Specific Grav Ur 1.015 (1.001-1.035); Urobilinogen Urine 0.2 mg/dL (<2.0); pH Urine 6.5 (5.0-9.0)
[2021-11-09 17:29] LABS: Squamous Epithelial Cell Urine Few /hpf (Few)
[2021-11-09 17:56] LABS: Influenza Control Positive
[2021-11-09 18:14] LABS: Add Urine Microscopic? YES
[2021-11-09 18:18] LABS: SARS-CoV-2 RNA PCR Negative
[2021-11-09] MEDS: GABAPENTIN 300 MG CAPSULE 600 MG PO (20:23)
[2021-11-10] VITALS (14 sets, daily range): BP systolic 102–138; BP diastolic 48–70; PULSE 97–128; RESP 18–20; TEMP 36.4–37.9; O2SAT 97–100
--- NOTE | 2021-11-10 | ECHO_ITS ---
Patient Info Name: Dang Ibrahim Age: 71 years : 1950 Gender: Female Ht: 65 in Wt: 208 lbs BSA: 2.12 m2 HR: 112 bpm BP: 119 / 61 mmHg Technical Quality: Fair Exam Date: 11/10/2021 2:04 PM Exam Location: [facility] Patient Status: Inpatient Admit Date: 11/08/2021 Staff Ordering Physician: Arpit Stiles MD Seating Upholsterer: Shukri Doll, MACIE, RT Attending Provider: Reagan Winter MD Exam Type: CA echo doppler color flow Study Info Indications R00.0 - Tachycardia, unspecified Complete two-dimensional, color flow and Doppler transthoracic echocardiogram is performed. Strain analysis performed. Summary 1. Complete two-dimensional, color flow and Doppler transthoracic echocardiogram is performed. 2. Left ventricular chamber dimension is normal. 3. Left ventricular systolic function is normal, estimated at 65-70%. 4. There is moderately increased left ventricular wall thickness. 5. Left ventricular septal wall motion is abnormal with septal motion related to bundle branch block. 6. The left ventricular diastolic function is grade I diastolic dysfunction. 7. E/e' 7 is not elevated. 8. Global longitudinal strain is abnormal at -15.8%. 9. There is small circumferential pericardial effusion. Left Ventricle E/e' 7 is not elevated. Global longitudinal strain is abnormal at -15.8%. Left ventricular chamber dimension is normal. Left ventricular systolic function is normal, estimated at 65-70%. There is moderately increased left ventricular wall thickness. Left ventricular septal wall motion is abnormal with septal motion related to bundle branch block. The left ventricular diastolic function is grade I diastolic dysfunction. Right Ventricle Right ventricular chamber dimension is normal. Right ventricular systolic function is normal. Left Atria Left atrial chamber dimension is normal. Right Atria Right atrial chamber dimension is normal. Aortic Valve The aortic valve is not well visualized. Cannot determine number of aortic valve leaflets. There is no aortic valve stenosis. There is no aortic valve regurgitation. Pulmonic Valve There is no pulmonic regurgitation. Mitral Valve There is no mitral valve stenosis. There is no mitral valve regurgitation. Tricuspid Valve There is no tricuspid valve regurgitation. Pericardium/Pleural There is small circumferential pericardial effusion. No cardiac tamponade. Inferior Vena Cava Normal inferior vena cava with >50% collapse upon inspiration consistent with normal right atrial pressure, 5 mmHg. Aorta The aortic root size at the sinus of Valsalva is normal. Left Ventricular Outflow Tract Name Value Normal LVOT 2D LVOT Diameter 2.0 cm Mitral Valve Name Value Normal MV Doppler MV Decel [place] 343 cm/s2 MV PHT 49 ms MV Area (PHT) 4.5 cm2 4.0-5.0 MV D
[2021-11-10] MEDS: TRIAMTERENE 37.5 MG/HCTZ 25 MG (MAXZIDE) TABLET 1 TAB PO (08:00)
[2021-11-10] MEDS: SENNA/DOCUSATE SODIUM TABLET 2 TAB PO ×2 (08:00→16:12)
[2021-11-10] MEDS: ASPIRIN 81 MG ENTERIC TABLET PO ×2 (08:01→16:12)
[2021-11-10] MEDS: polyethylene glycoL 3350 17 GM POWD.PACK PO (08:01)
[2021-11-10] MEDS: MELOXICAM 7.5 MG TABLET 15 MG PO (08:01)
[2021-11-10] MEDS: oxyCODONE HCL (*CRX) 5 MG TAB IR PO (08:05)
--- NOTE | 2021-11-10 11:56 | PM.IMPN ---
Progress Note: A&P Assessment and Plan (1) Sinus tachycardia: Code(s): R00.0 - Tachycardia, unspecified Status: Acute Assessment and Plan: Consulted for tachycardia. HR initially was normal post-operatively. HR climbed to 100-130 that is high end with exertion but still with resting tachycardia even with sleep. Etiology includes related to pain, VTE, dehydration, cardiac arrhythmia, hypothyroidism, anemia, cardiac ischemia, withdrawal or infection. She received a liter of IV fluids without much change. TSH normal. CTA negative for PE. Doppler negative for DVT. Patient receiving narcotics for pain. Withdrawal also seems unlikely. EKG shows sinus tachycardia with anterior septal myocardial infarct of indeterminate age which is a new finding from prior EKG. Troponin negative x1. Will repeat Troponin and check Echo. (2) Fever: Code(s): R50.9 - Fever, unspecified Status: Acute Assessment and Plan: Patient developed fever yesterday. There was concern that her tachycardia may related to infectious process now with fevers. Blood cultures were collected and they were negative to date. UA noted and was not consistent with infection. CTA of the chest showed no pulmonary emboli and only mild atelectasis in the right lower lobe. Lower extremity venous Doppler was negative for DVT. Fever most likely related to atelectasis probably unrelated to the sinus tachycardia. Continue to monitor. (3) Status post total left knee replacement: Code(s): Z96.652 - Presence of left artificial knee joint Status: Acute Assessment and Plan: Patient is postop day 3 from left total knee replacement. And despite the tachycardia and low greade fever, she otherwise appears to be recovering well. Continue PT/OT. (4) Hypertension: Code(s): I10 - Essential (primary) hypertension Status: Acute Assessment and Plan: Patient's blood pressure was reviewed on 11/10 Blood pressure remains well controlled. Will continue current medications. (5) Knee osteoarthritis: Code(s): M17.10 - Unilateral primary osteoarthritis, unspecified knee Status: Acute Assessment and Plan: As above. (6) DVT prophylaxis: Code(s): Z29.9 - Encounter for prophylactic measures, unspecified Status: Acute Assessment and Plan: ASA, Felix rosario Subjective Date/time seen: 11/10/21 11:56 Interval history: 71yo female with HTN and DJD here for elective left TKA who we were consulted for tachycardia. No fevers overnight. She is having dyspnea on exertion and heart rate does climbed to 130s. No chest pain. Knee pain is better controlled. She slept well. Exam Narrative: Tm 101.8 98.9 119/61 118 18 100% ra Gen - NARD sitting up in chair Chest - CTA bilaterally, nml RR CV - tachycardic, regular. Tele showing persistent tachycardia even at rest Abd - Soft, NT/ND, Positive BS Ext - trace LLE edema. Left knee dressing clean, dry and intact. Felix hose in place Psych - Nml mood and affect Skin - Warm and dry Objective Data Vital Signs Vital Signs: Vital Signs - 24 hr 11/09/21 12:00 11/09/21 12:47 11/09/21 13:32 Temperature 101.8 F H 101.8 F H 100.4 F H Pulse Rate 124 H Respiratory Rate 18 Blood Pressure 135/68 Pulse Oximetry 97 11/09/21 13:47 11/09/21 14:30 11/09/21 16:00 Temperature 100.4 F H 100.3 F H Pulse Rate 125 H 110 H Respiratory Rate 16 Blood Pressure 116/57 L Pulse Oximetry 96 11/09/21 18:10 11/09/21 20:00 11/09/21 20:19 Temperature 98.3 F 97 F L Pulse Rate 120 H 106 H 105 H Respiratory Rate 16 18 Blood Pressure 104/63 121/68 Pulse Oximetry 97 96 11/10/21 00:00 11/10/21 00:14 11/10/21 04:00 Temperature 98.6 F Pulse Rate 108 H 108 H 113 H Respiratory Rate 18 Blood Pressure 118/70 Pulse Oximetry 97 11/10/21 04:13 11/10/21 08:00 11/10/21 10:15 Temperature 98.5 F 98.9 F Pulse Rate 118 H 124 H
[2021-11-10] MEDS: oxyCODONE HCL (*CRX) 5 MG TAB IR 10 MG PO (12:06)
[2021-11-10 12:35] LABS: Troponin I < 0.012 ng/mL (0.000-0.034)
--- NOTE | 2021-11-10 12:51 | PCCCNOTE ---
On 11/10/21, the student, [Faina Brownlee ], provided care and completed [facility] documentation on this patient. I have reviewed the student's documentation and agree with the findings.
--- NOTE | 2021-11-10 14:20 | PM.PNORT ---
Progress Note: A&P Assessment and Plan (1) Status post total left knee replacement: Code(s): Z96.652 - Presence of left artificial knee joint Status: Acute Assessment and Plan: Postop day 3: Left total knee arthroplasty. Complex reconstruction using 5mm augment, tibial and femoral stems, and extensive MCL release. Postoperative issues include tachycardia and fever. Appreciate hospitalist assistance. Pain manageable with pain medication. No numbness or tingling. Okay for discharge home from orthopedic standpoint once patient is stable medically. We had a lengthy discussion regarding postoperative wound care, limitations, expectations, and exercises. Patient shows good understanding. DVT prophylaxis: 81 mg baby aspirin b.i.d. for 14 days. Pain medication: Percocet. Patient has followup appointment with Dr. Winter in 3 weeks. Subjective Subjective Date/Time Seen: 11/10/21 08:00 Patient states she is feeling better today. Pain controlled with medications. Complained of some weakness and did not have PT yesterday due to elevated HR. No other complaints. Review of Systems Review of Systems: All systems reviewed & are unremarkable except as noted in HPI and below Exam Narrative: 71-year-old overweight female. Resting comfortably in bed. Alert and oriented x3. No acute distress. Wearing compression socks bilaterally. Dressing intact without drainage. Moderate swelling. Slight ecchymosis. No erythema. No hematoma. No warmth. Range of motion limited due to pain. Calf nontender. Neurologic status intact. No varicosities. Distal pulses palpable. Light touch sensation intact. Good capillary refill. Objective Data Vital Signs Vital Signs: Vital Signs - 24 hr 11/09/21 14:30 11/09/21 16:00 11/09/21 18:10 Temperature 100.3 F H 98.3 F Pulse Rate 125 H 110 H 120 H Respiratory Rate 16 16 Blood Pressure 116/57 L 104/63 Pulse Oximetry 96 97 11/09/21 20:00 11/09/21 20:19 11/10/21 00:00 Temperature 97 F L Pulse Rate 106 H 105 H 108 H Respiratory Rate 18 Blood Pressure 121/68 Pulse Oximetry 96 11/10/21 00:14 11/10/21 04:00 11/10/21 04:13 Temperature 98.6 F 98.5 F Pulse Rate 108 H 113 H 118 H Respiratory Rate 18 18 Blood Pressure 118/70 138/61 Pulse Oximetry 97 97 11/10/21 08:00 11/10/21 10:15 11/10/21 12:00 Temperature 98.9 F Pulse Rate 124 H 118 H 112 H Respiratory Rate 18 Blood Pressure 119/61 Pulse Oximetry 100 Intake/Output Intake/Output: Intake & Output 11/07/21 11/08/21 11/09/21 11/10/21 23:59 23:59 23:59 23:59 Intake Total 2140 3560 855 5158 Output Total 450 600 Balance 1690 129 861 8741 Meds/Results Medications: Active Medications Generic Name Dose Route Start Last Admin Trade Name Freq PRN Reason Stop Dose Admin Acetaminophen 1,000 mg 11/07/21 15:25 11/09/21 12:47 Acetaminophen 500 Mg Tablet PO 1,000 mg Q6H PRN Administration Pain of 1-3 or Fever Aspirin 81 mg 11/07/21 17:00 11/10/21 08:01 Aspirin 81 Mg Enteric Tablet PO 81 mg BID DAO Administration Cyclobenzaprine HCl 10 mg 11/07/21 15:25 11/08/21 15:25 Cyclobenzaprine Hcl 10 Mg Tablet PO 10 mg Q8H PRN Administration Spasms Diphenhydramine HCl 25 mg 11/07/21 15:25 Diphenhydramine Hcl Inj 50 Mg/Ml Vial IV PUSH Q6H PRN Itching Gabapentin 600 mg 11/07/21 21:00 11/09/21 20:23 Gabapentin 300 Mg Capsule PO 600 mg HS DAO Administration Meloxicam 15 mg 11/08/21 09:00 11/10/21 08:01 Meloxicam 7.5 Mg Tablet PO 12/08/21 08:59 15 mg DAILY DAO Administration Naloxone HCl 0.1 mg 11/07/21 15:25 Naloxone Hcl 0.4 Mg/Ml Vial IV PUSH Q2M PRN Opiate Reversal Ondansetron HCl 4 mg 11/07/21 15:25 Ondansetron Inj 4 Mg/2 Ml Vial IV PUSH Q4H PRN Nausea And Vomiting Oxycodone HCl 5 mg 11/07/21 15:25 11/10/21 08:05 Oxycodone Hcl (*Crx) 5 Mg Tab Ir PO 5 mg Q4H PRN Ad
[2021-11-10] MEDS: GABAPENTIN 300 MG CAPSULE 600 MG PO (20:41)
[2021-11-11] VITALS (13 sets, daily range): BP systolic 113–135; BP diastolic 60–78; PULSE 69–110; RESP 12–20; TEMP 36.6–37.5; O2SAT 97–99
[2021-11-11] MEDS: oxyCODONE HCL (*CRX) 5 MG TAB IR 10 MG PO (03:28)
[2021-11-11] MEDS: polyethylene glycoL 3350 17 GM POWD.PACK PO (08:05)
[2021-11-11] MEDS: ASPIRIN 81 MG ENTERIC TABLET PO ×2 (08:05→16:34)
[2021-11-11] MEDS: SENNA/DOCUSATE SODIUM TABLET 2 TAB PO ×2 (08:05→16:34)
[2021-11-11] MEDS: MELOXICAM 7.5 MG TABLET 15 MG PO (08:05)
[2021-11-11] MEDS: TRIAMTERENE 37.5 MG/HCTZ 25 MG (MAXZIDE) TABLET 1 TAB PO (08:05)
[2021-11-11] MEDS: oxyCODONE HCL (*CRX) 5 MG TAB IR PO ×2 (08:18→16:34)
--- NOTE | 2021-11-11 10:46 | PM.IMPN ---
Progress Note: A&P Assessment and Plan (1) Sinus tachycardia: Code(s): R00.0 - Tachycardia, unspecified Status: Acute Assessment and Plan: Patient with mild tachycardia at rest. Telemetry was reviewed showing sinus tachycardia. Continue to watch tachycardia is improving. (2) Status post total left knee replacement: Code(s): Z96.652 - Presence of left artificial knee joint Status: Acute Assessment and Plan: Patient is postop day 3 from left total knee replacement. (3) Hypertension: Code(s): I10 - Essential (primary) hypertension Status: Acute Assessment and Plan: Bp is stable at 126/78 (4) Knee osteoarthritis: Code(s): M17.10 - Unilateral primary osteoarthritis, unspecified knee Status: Acute Assessment and Plan: As above. (5) DVT prophylaxis: Code(s): Z29.9 - Encounter for prophylactic measures, unspecified Status: Acute Assessment and Plan: ASA (6) Fever: Code(s): R50.9 - Fever, unspecified Status: Acute Assessment and Plan: Pt still having low grade fevers no specific complaints Cultures are negative to date CTPA - negative for PE and Echo -unremarkable Tylenol Prn fever W[place] [id number] continue to monitor [facility] dc soon Saturday or Saturday Subjective Date/time seen: 11/11/21 10:46 Interval history: 71yo female with HTN and DJD here for elective left TKA who we were consulted for tachycardia. Pt still having low grade fevers heart rate @ 90s. Pt denies any cough or SOB or wheeze So far cultures are negative to date CTPA - negative for PE and Echo -unremarkable Review of Systems Review of Systems: All systems reviewed & are unremarkable except as noted in HPI and below Exam Narrative: Vital Signs Temp Pulse Resp BP Pulse Ox 11/11/21 10:00 37.5 C 69 18 126/78 99 11/11/21 08:04 113/60 11/11/21 08:00 99 11/11/21 04:00 97 11/11/21 03:23 37.3 C 106 H 20 135/67 97 11/11/21 02:52 97 11/11/21 00:00 103 H 11/10/21 23:34 36.4 C L 97 20 102/48 L 97 11/10/21 20:14 36.7 C 100 18 116/63 100 11/10/21 20:00 98 11/10/21 18:15 37.4 C 111 H 18 113/58 L 100 11/10/21 16:00 128 H 11/10/21 15:00 37.8 C H 11/10/21 14:20 37.9 C H 116 H 18 118/67 100 11/10/21 12:00 112 H Intake and Output 11/10/21 11/11/21 11/11/21 23:59 07:59 15:59 Intake Total 550 390 120 Balance 550 390 120 Intake: Oral 550 390 120 Other: # Unmeasure
--- NOTE | 2021-11-11 11:17 | PM.PNORT ---
Progress Note: A&P Assessment and Plan (1) Status post total left knee replacement: Code(s): Z96.652 - Presence of left artificial knee joint Status: Acute Assessment and Plan: Postop day 4: Left total knee arthroplasty. Complex reconstruction using 5mm augment, tibial and femoral stems, and extensive MCL release. Postoperative issues include tachycardia and fever. Fever controlled with Tylenol. HR trending down. Will continue to follow. Appreciate hospitalist assistance. Echo unremarkable. CTA negative for PE. Doppler US negative for DVT. Blood cultures have no growth to date. Waiting on urine cultures. Atelectases noted on chest xray. Fever not likely due to knee infection. No wound drainage. Pain manageable with pain medication. No numbness or tingling. Okay for discharge home from orthopedic standpoint once patient is stable medically. We had a lengthy discussion regarding postoperative wound care, limitations, expectations, and exercises. Patient shows good understanding. DVT prophylaxis: 81 mg baby aspirin b.i.d. for 14 days. Pain medication: Percocet. Meloxicam Patient has followup appointment with Dr. Winter in 3 weeks. Subjective Subjective Date/Time Seen: 11/11/21 11:17 Patient feeling much better today. States she is less weak. No CP, SOB, ABD pain, urinary symptoms. Last HR was 69. Low grade fever treatable with Tylenol. Afebrile today. Pain controlled with medications. Progressing well with PT. Review of Systems Review of Systems: All systems reviewed & are unremarkable except as noted in HPI and below Exam Narrative: 71-year-old overweight female. Resting comfortably in chair. Alert and oriented x3. No acute distress. Wearing compression socks bilaterally. Dressing intact without drainage. Moderate swelling. Slight ecchymosis. No erythema. No hematoma. No warmth. Range of motion limited due to pain. Good quad function. Calf nontender. Neurologic status intact. No varicosities. Distal pulses palpable. Light touch sensation intact. Good capillary refill. Objective Data Vital Signs Vital Signs: Vital Signs - 24 hr 11/10/21 12:00 11/10/21 14:20 11/10/21 15:00 Temperature 100.3 F H 100.0 F H Pulse Rate 112 H 116 H Respiratory Rate 18 Blood Pressure 118/67 Pulse Oximetry 100 11/10/21 16:00 11/10/21 18:15 11/10/21 20:00 Temperature 99.4 F Pulse Rate 128 H 111 H 98 Respiratory Rate 18 Blood Pressure 113/58 L Pulse Oximetry 100 11/10/21 20:14 11/10/21 23:34 11/11/21 00:00 Temperature 98.0 F 97.5 F L Pulse Rate 100 97 103 H Respiratory Rate 18 20 Blood Pressure 116/63 102/48 L Pulse Oximetry 100 97 11/11/21 02:52 11/11/21 03:23 11/11/21 04:00 Temperature 99.1 F Pulse Rate 106 H 97 Respiratory Rate 20 Blood Pressure 135/67 Pulse Oximetry 97 97 11/11/21 08:00 11/11/21 08:04 11/11/21 10:00 Temperature 99.5 F Pulse Rate 99 69 Respiratory Rate 18 Blood Pressure 113/60 126/78 Pulse Oximetry 99 Intake/Output Intake/Output: Intake & Output 11/08/21 11/09/21 11/10/21 11/11/21 23:59 23:59 23:59 23:59 Intake Total 8868 355 3268 510 Output Total 600 Balance 634 345 9613 510 Meds/Results Medications: Active Medications Generic Name Dose Route Start Last Admin Trade Name Freq PRN Reason Stop Dose Admin Acetaminophen 1,000 mg 11/07/21 15:25 11/09/21 12:47 Acetaminophen 500 Mg Tablet PO 1,000 mg Q6H PRN Administration Pain of 1-3 or Fever Aspirin 81 mg 11/07/21 17:00 11/11/21 08:05 Aspirin 81 Mg Enteric Tablet PO 81 mg BID DAO Administration Cyclobenzaprine HCl 10 mg 11/07/21 15:25 11/08/21 15:25 Cyclobenzaprine Hcl 10 Mg Tablet PO 10 mg Q8H PRN Administration Spasms Diphenhydramine HCl 25 mg 11/07/21 15:25 Diphenhydramine Hcl Inj 50 Mg/Ml Vial IV PUSH Q6H PRN Itching Gabapentin 600 mg 11/07/21 21:00 11/10/21 20:41 Gabapentin 300 Mg
[2021-11-11] MEDS: GABAPENTIN 300 MG CAPSULE 600 MG PO (20:07)
[2021-11-12] VITALS (9 sets, daily range): BP systolic 106–131; BP diastolic 56–60; PULSE 90–106; RESP 16; TEMP 36.5–37.2; O2SAT 91–100
[2021-11-12] MEDS: oxyCODONE HCL (*CRX) 5 MG TAB IR PO (05:46)
[2021-11-12] MEDS: oxyCODONE HCL (*CRX) 5 MG TAB IR 10 MG PO (09:31)
[2021-11-12] MEDS: SENNA/DOCUSATE SODIUM TABLET 2 TAB PO (09:33)
[2021-11-12] MEDS: polyethylene glycoL 3350 17 GM POWD.PACK PO (09:33)
[2021-11-12] MEDS: ASPIRIN 81 MG ENTERIC TABLET PO (09:33)
[2021-11-12] MEDS: MELOXICAM 7.5 MG TABLET 15 MG PO (09:33)
[2021-11-12] MEDS: TRIAMTERENE 37.5 MG/HCTZ 25 MG (MAXZIDE) TABLET 1 TAB PO (09:33)
--- NOTE | 2021-11-12 09:40 | PM.IMPN ---
Progress Note: A&P Assessment and Plan (1) Sinus tachycardia: Code(s): R00.0 - Tachycardia, unspecified Status: Acute Assessment and Plan: Improved, asymptomatic. (2) Status post total left knee replacement: Code(s): Z96.652 - Presence of left artificial knee joint Status: Acute Assessment and Plan: Patient is postop day 3 from left total knee replacement. (3) Hypertension: Code(s): I10 - Essential (primary) hypertension Status: Acute Assessment and Plan: Bp is stable at 126/78 (4) Knee osteoarthritis: Code(s): M17.10 - Unilateral primary osteoarthritis, unspecified knee Status: Acute Assessment and Plan: As above. (5) DVT prophylaxis: Code(s): Z29.9 - Encounter for prophylactic measures, unspecified Status: Acute Assessment and Plan: ASA (6) Fever: Code(s): R50.9 - Fever, unspecified Status: Acute Assessment and Plan: No low-grade fevers Overnight. Workup unrevealing. Subjective Date/time seen: 11/12/21 09:40 Interval history: 71yo female with HTN and DJD here for elective left TKA who we were consulted for tachycardia. No low-grade fevers Overnite and feels good and wants to go home. Exam Narrative: Vital Signs Temp Pulse Resp BP Pulse Ox 11/11/21 10:00 37.5 C 69 18 126/78 99 11/11/21 08:04 113/60 11/11/21 08:00 99 11/11/21 04:00 97 11/11/21 03:23 37.3 C 106 H 20 135/67 97 11/11/21 02:52 97 11/11/21 00:00 103 H 11/10/21 23:34 36.4 C L 97 20 102/48 L 97 11/10/21 20:14 36.7 C 100 18 116/63 100 11/10/21 20:00 98 11/10/21 18:15 37.4 C 111 H 18 113/58 L 100 11/10/21 16:00 128 H 11/10/21 15:00 37.8 C H 11/10/21 14:20 37.9 C H 116 H 18 118/67 100 11/10/21 12:00 112 H Intake and Output 0411/11/21 11/11/21 23:59 07:59 15:59 Intake Total 550 390 120 Balance 550 390 120 Intake: Oral 550 390 120 Other: # Unmeasured Voi ds 3 2 # Bowel Movement s 2 Gen - Elderly lady pleasant Chest - Clear lungs CV - tachycardic Abd - Soft, Non tender Ext - Left knee dressing clean, dry and intact. with polar ice machine Psych - Good mood and affect Skin - Warm and dry Objective Data Vital Signs Vital Signs: Vital Signs - 24 hr 11/11/21 10:00 11/11/21 12:00 11/11/21 14:00 Tempera
--- NOTE | 2021-11-12 10:23 | PM.PNORT ---
Progress Note: A&P Assessment and Plan (1) Orthopedic aftercare for joint replacement: Qualifiers: Joint replacement surgery site: knee Laterality: left Qualified Code(s): Z47.1 - Aftercare following joint replacement surgery; Z96.652 - Presence of left artificial knee joint Code(s): Z47.1 - Aftercare following joint replacement surgery Status: Acute (2) Status post total left knee replacement: Code(s): Z96.652 - Presence of left artificial knee joint Status: Acute Assessment and Plan: Medically stable. Discussed with hospitalist and nurse. Ok for discharge today. Subjective Subjective Date/Time Seen: 11/12/21 10:23 Objective Data Vital Signs Vital Signs: Vital Signs - 24 hr 11/11/21 12:00 11/11/21 14:00 11/11/21 16:00 Temperature 37.2 C Pulse Rate 110 H 105 H 103 H Respiratory Rate 12 Blood Pressure 122/61 Pulse Oximetry 98 11/11/21 18:00 11/11/21 20:00 11/11/21 21:19 Temperature 36.6 C 36.6 C Pulse Rate 107 H 100 98 Respiratory Rate 16 14 Blood Pressure 127/62 123/60 Pulse Oximetry 98 97 11/12/21 00:00 11/12/21 00:32 11/12/21 04:00 Temperature 36.6 C Pulse Rate 94 92 98 Respiratory Rate 16 Blood Pressure 109/56 L Pulse Oximetry 91 11/12/21 06:12 Temperature 36.5 C Pulse Rate 90 Respiratory Rate 16 Blood Pressure 106/60 Pulse Oximetry 100 Intake/Output Intake/Output: Intake & Output 11/09/21 11/10/21 11/11/21 11/12/21 23:59 23:59 23:59 23:59 Intake Total 800 2030 1000 420 Output Total 200 1200 Balance 800 2030 800 -780 Meds/Results Medications: Active Medications Generic Name Dose Route Start Last Admin Trade Name Freq PRN Reason Stop Dose Admin Acetaminophen 1,000 mg 11/07/21 15:25 11/09/21 12:47 Acetaminophen 500 Mg Tablet PO 1,000 mg Q6H PRN Administration Pain of 1-3 or Fever Aspirin 81 mg 11/07/21 17:00 11/12/21 09:33 Aspirin 81 Mg Enteric Tablet PO 81 mg BID DAO Administration Cyclobenzaprine HCl 10 mg 11/07/21 15:25 11/08/21 15:25 Cyclobenzaprine Hcl 10 Mg Tablet PO 10 mg Q8H PRN Administration Spasms Diphenhydramine HCl 25 mg 11/07/21 15:25 Diphenhydramine Hcl Inj 50 Mg/Ml Vial IV PUSH Q6H PRN Itching Gabapentin 600 mg 11/07/21 21:00 11/11/21 20:07 Gabapentin 300 Mg Capsule PO 600 mg HS DAO Administration Meloxicam 15 mg 11/08/21 09:00 11/12/21 09:33 Meloxicam 7.5 Mg Tablet PO 12/08/21 08:59 15 mg DAILY DAO Administration Naloxone HCl 0.1 mg 11/07/21 15:25 Naloxone Hcl 0.4 Mg/Ml Vial IV PUSH Q2M PRN Opiate Reversal Ondansetron HCl 4 mg 11/07/21 15:25 Ondansetron Inj 4 Mg/2 Ml Vial IV PUSH Q4H PRN Nausea And Vomiting Oxycodone HCl 5 mg 11/07/21 15:25 11/12/21 05:46 Oxycodone Hcl (*Crx) 5 Mg Tab Ir PO 5 mg Q4H PRN Administration Pain Rated 4-6 Oxycodone HCl 10 mg 11/07/21 15:25 11/12/21 09:31 Oxycodone Hcl (*Crx) 5 Mg Tab Ir PO 10 mg Q4H PRN Administration Pain Rated 7-10 Perflutren Lipid Microsphere 0 ml 11/10/21 10:56 Perflutren Lipid Microspheres 1.5 Ml Vial Diluted To 10 Ml Total Volume IV PUSH ONCE PRN adequate visualization Protocol Polyethylene Glycol 17 gm 11/08/21 09:00 11/12/21 09:33 Polyethylene Glycol 3350 17 Gm Powd.Pack PO 17 gm QAM DAO Administration Senna/Docusate Sodium 2 tab 11/07/21 17:00 11/12/21 09:33 Senna/Docusate Sodium Tablet PO 2 tab BID DAO Administration Terbinafine HCl 250 mg 11/19/21 09:00 Terbinafine Hcl 250 Mg Tablet PO 11/25/21 09:01 DAILY DAO Triamterene/Hydrochlorothiazide 1 tab 11/08/21 09:00 11/12/21 09:33 Triamterene 37.5 Mg/Hctz 25 Mg (Maxzide) Tablet PO 1 tab QAM DAO Administration Radiology Results: ITS Impressions Knee X-Ray 11/07/21 14:38 IMPRESSION: 1. Total left knee arthroplasty in near-anatomic alignment. Venous
--- NOTE | 2021-11-17 16:02 | PM.DS ---
DS: Admitting Diagnosis Discharge Date 11/12/21 Admitting Diagnosis End-stage arthritis of bilateral knees. DS: Discharge Diagnosis Discharge Diagnosis (1) Status post total left knee replacement: Code(s): Z96.652 - Presence of left artificial knee joint Status: Acute (2) Sinus tachycardia: Code(s): R00.0 - Tachycardia, unspecified Status: Acute (3) Fever: Qualifiers: Fever type: post-procedural Qualified Code(s): R50.82 - Postprocedural fever Code(s): R50.9 - Fever, unspecified Status: Acute DS: Summary Hospital Course Reason for hospitalization: Total knee arthroplasty. 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 Difficulty during her postoperative stay. Hemodynamic changes. Hospitalist consultation. Symptoms eventually improved and she was stable for home discharge. Status at Discharge Cognitive/behavioral status at discharge: No issues. Functional status at discharge: uses cane/walker Overall status at discharge: patient is progressing back to baseline Time Spent with Patient Time attestation: Total time spent providing and/or coordinating discharge services: Exam Const: General: no acute distress Resp: Effort & Inspection: normal respiratory effort Skin: Other: Wound healing well. Mepilex dressing intact. No hematoma or drainage. Neuro: Motor exam (neuro): 5/5 motor strength present throughout Sensory Exam: normal sensation Psych: Mental Status: mental status grossly normal Speech and movement: Normal speech and movement present Discharge Plan Discharge Attending physician on discharge: Reagan Winter Consulting providers: Arpit Stiles ; Carl Posada ; Jose Kumar ; Hamlet Pang ; Tonny Sprague ; Meredith Garcia ; Florencio Barker ; Marcella Cuevas ; Arik Babb V. Discharging Clinician: Reagan Winter Patient Disposition: Home, Self-Care Activity: may shower Diet: as tolerated Wound Care Instructions: follow printed instructions Discharge Instructions: See instruction sheet. Patient Instructions: Antibiotic Form Stand Alone Forms: General Discharge Information Follow-up/Referrals: Reagan Winter MD [Physician] - Discharge Medications: New aspirin 81 mg tablet,delayed release (DR/EC) 81 mg PO BID 14 Days Qty: 28 RF: 0 oxycodone-acetaminophen 5-325 mg tablet 1 - 2 tablet PO Q4-6H MDD 6 PRN (Reason: pain) Qty: 30 RF: 0 Continued gabapentin 300 mg capsule 600 mg PO HS RF: 0 terbinafine HCl 250 mg Tablet 250 mg PO MONTHLY RF: 0 ue-udp-exhjl-calcium carb-K1 400 mcg-500 mg calcium-20 mcg Tablet 1 tablet PO DAILY RF: 0 meloxicam [Mobic] 15 mg tablet 15 mg PO DAILY Qty: 90 RF: 1 triamterene-hydrochlorothiazid 37.5-25 mg tablet 1 tablet PO QAM Qty: 90 RF: 1 Discontinued hydrocodone-acetaminophen 5-325 mg tablet 1 tablet PO Q8H PRN (Reason: pain) Qty: 21 RF: 0 Hold Instructions: Resume on 11/25/21. Hold while taking Oxycodone. Date of admission: 11/08/21 15:36 Primary Care Provider: Daria Warner Admitting Provider: Reagan Winter Attending physician on admission: Reagan Winter Condition: Stable Quality VTE Prophylaxis VTE prophylaxis: pharmacologic ordered (ASA)
== END 2021-11-12 16:00 | disposition home or self-care (01) ==
LOC: ANHSURGERY 15:52 → ANH2MED 15:52
PROVIDERS: Internal Medicine; Admitting Provider Orthopaedic Surgery; PCP Family Medicine; Visit Provider Orthopaedic Surgery
PROC: (CPT 27447; principal; 2021-11-07 11:00)
DX: M17.12 Unilateral primary osteoarthritis, left knee (principal); R50.9 Fever, unspecified; R00.0 Tachycardia, unspecified; G89.18 Other acute postprocedural pain; J98.11 Atelectasis; M79.605 Pain in left leg; I10 Essential (primary) hypertension; E66.9 Obesity, unspecified; Z68.34 Body mass index [BMI] 34.0-34.9, adult; Z79.891 Long term (current) use of opiate analgesic; Z20.822 Contact with and (suspected) exposure to COVID-19
CPT/HCPCS: 27447; 64447; 36415; 71045; 71275; 73560; 80048; 80053; 80307; 81001; 82040; 83036; 84443; 84484; 85025; 86850; 86900; 86901; 87040; 87081; 87086; 87804; 93005; 93306; 93970; 97110; 97116; 97161; 97165; 97530; 97535; A9270; C1713; C1776; C9803; G0378; J0131; J0171; J0690; J1100; J1170; J1885; J2250; J2270; J2405; J2704; J2795; J3010; J7030; J7120; Q9967; U0003; U0005

== ENCOUNTER 2022-01-25 09:51 | Outpatient (CLI) | payer MEDICARE, SELFPAY ==
[2022-01-25 10:14] LABS: Hematocrit 34.6 % (37.0-47.0); Hemoglobin 10.7 g/dL (12.0-15.0); Mean Corpuscular HGB Conc 30.9 g/dl (32-36); Mean Corpuscular Hemoglobin 28.5 pg (26-34); Mean Platelet Volume 9.1 fl (7.4-10.4); Platelet Count Result 267 k/mm3 (150-375); Red Blood Count 3.76 M/mm3 (4.2-5.4); Red Cell Distribution Width 13.8 % (11.5-14.5); White Blood Count 7.8 K/mm3 (4.5-10.0)
[2022-01-25 10:27] LABS: Alanine Aminotransferase 15 U/L (6-35); Albumin Level 4.1 g/dL (3.5-5.1); Alkaline Phosphatase 119 U/L (38-126); Anion Gap 5 mmol/L (8-16); Aspartate Amino Transferase 24 U/L (14-36); Bilirubin,Total 0.5 mg/dL (0.2-1.3); Blood Urea Nitrogen 23 mg/dL (7-17); Calcium 9.2 mg/dL (8.4-10.2); Carbon Dioxide 30 mmol/L (22-30); Chloride 105 mmol/L (98-107); Estimated Glomerular Filt Rate > 60; Glucose 94 mg/dL (65-110); Potassium 3.6 mmol/L (3.4-5.0); Sodium 140 mmol/L (137-145)
[2022-01-25 10:50] LABS: Iron 64 ug/dL (37-170)
[2022-01-25 10:59] LABS: Percent Iron Saturation 17 % (20-50)
[2022-01-25 11:38] LABS: Folic Acid 11.8 ng/mL (2.76->20)
== END 2022-01-25 09:52 | disposition home or self-care (01) ==
LOC: ANHLAB 09:54
PROVIDERS: PCP Family Medicine; Visit Provider Family Medicine
DX: D64.9 Anemia, unspecified (principal); R73.03 Prediabetes; I10 Essential (primary) hypertension
CPT/HCPCS: 36415; 80053; 82607; 82728; 82746; 83036; 83540; 83550; 85027

== ENCOUNTER 2022-02-02 08:11 | Outpatient (CLI) | payer MEDICARE, SELFPAY ==
--- NOTE | ~2022-02-02 | MR_ITS ---
EXAMINATION: MR cervical spine wo con DATE: 02/02/2022 09:13 INDICATION: Neck pain. Cervical radiculopathy. TECHNIQUE: Magnetic resonance imaging (MRI) of the cervical spine was performed without intravenous c ontrast. Sequences included sagittal T2-weighted FSE, sagittal T2-weighted FS FSE, sagittal T1-weight ed FSE, axial MERGE, and axial T2-weighted FSE. COMPARISON: None FINDINGS: There is 5 degrees dextrocurvature of cervicothoracic spine. There is kyphosis of cervical spine. There is 3 mm anterolisthesis of C3 on C4 and 2 mm anterolisthesis of C4 on C5. Vertebral body heights are normal. There is severely decreased disc height from C3-C4 through C5-C6, moderately dec reased disc height at C6-C7, and mildly decreased disc height at C7-T1 with endplate remodeling. Ther e is interbody fusion at C4-C5. The spinal cord signal intensity is normal. The following disc levels are specifically discussed: C2-C3: There is a central extrusion. There is mild bilateral uncovertebral joint osteoarthritis. Ther e is severe right facet joint osteoarthritis. There is mild right neural foraminal stenosis. There is no central canal stenosis. C3-C4: The disc is bulging. There is severe bilateral uncovertebral joint osteoarthritis. There is se terra bilateral facet joint osteoarthritis. There is hypertrophy of the ligamentum flavum. There is mo derate bilateral neural foraminal stenosis. There is severe central canal stenosis with ventral and d orsal indentation of spinal cord. C4-C5: There is mild bilateral uncovertebral joint hypertrophy. There is ankylosis of left facet join t with moderate hypertrophy. There is mild osteoarthritis of right facet joint. There is mild bilater al neural foraminal stenosis. There is mild central canal stenosis with ventral indentation of the sp inal cord. C5-C6: The disc is bulging. There is severe bilateral uncovertebral joint osteoarthritis. There is no facet joint osteoarthritis. There is mild bilateral neural foraminal stenosis. There is mild central canal stenosis with ventral indentation of the spinal cord. C6-C7: The disc is bulging. There is severe bilateral uncovertebral joint osteoarthritis. There is mo derate right and mild left facet joint osteoarthritis. There is mild bilateral neural foraminal steno sis. There is mild central canal stenosis with ventral indentation of the spinal cord. C7-T1: The disc is bulging. There is no uncovertebral joint osteoarthritis. There is severe bilateral facet joint osteoarthritis. There is mild bilateral neural foraminal stenosis. There is no central c anal stenosis. IMPRESSION: 1. Severe cervical spondylosis. Reviewed, dictated and finalized at location A.
== END 2022-02-02 08:12 | disposition home or self-care (01) ==
PROVIDERS: PCP Family Medicine; Visit Provider Family Medicine
DX: M47.22 Other spondylosis with radiculopathy, cervical region (principal)
CPT/HCPCS: 72141

== ENCOUNTER 2022-02-21 11:42 | Outpatient (CLI) | payer MEDICARE, SELFPAY ==
[2022-02-21 13:25] LABS: Urine Cotinine NEGATIVE
== END 2022-02-21 11:43 | disposition home or self-care (01) ==
LOC: ANHSURGERY 11:46
PROVIDERS: PCP Family Medicine; Visit Provider Orthopaedic Surgery
DX: M17.11 Unilateral primary osteoarthritis, right knee (principal); Z01.818 Encounter for other preprocedural examination
CPT/HCPCS: 80307; 86850; 86900; 86901; 87081

== ENCOUNTER 2022-03-07 18:15 | Observation (INO) | payer MEDICARE, SELFPAY ==
[2022-02-21 11:36] VITALS: BP 159/77; PULSE 65; RESP 16; TEMP 36.1; O2SAT 95
[2022-02-21 11:54] VITALS: BMI 34.4
--- NOTE | 2022-02-21 12:12 | PC.NURSE ---
Addendum entered by Perez Peña RN 02/21/22 12:27: Stop Meloxicam 02-27-2022. Original Note: Report to the Outpatient Waiting Room, entrance under the green pavilion located off [facility], at time _0830_ on date _[id number]_. OR Time: _1030_. - You and your visitor will be asked a series of questions to screen for COVID 19 for your protection. - Only one visitor is allowed at this time. - The patient visitor is requested to leave or wait in car when not with patient. - A mask is required within the hospital. Patients may have clear liquids (water, carbonated beverages, clear teas, apple juice) until 3 hours prior to surgery with a maximum of 20 ounces. - No food from midnight until time of surgery Take the following medications with a SIP of water the morning of surgery: ___none Medications to discontinue per physician ___Multivitamin, red yeast rice Date to take last dkuq___[id number] Please no make-up, nail mozambican, hairspray, perfume, deodorant, or body powder the day of surgery. No jewelry (including any body piercings) or valuables the day of surgery, leave them at home. Please take a shower or bath the night before, or the morning of, surgery with an antibacterial soap. Wear comfortable, loose fitting clothing. - Jewelry must be removed prior to entering the operating room. Rings and piercings that are not removed may be cut off. - The hospital will not accept responsibility for valuables. - Please leave all valuables, including medications, at home the day of surgery. If you are going home after surgery, a licensed otr owner operator truck driver must drive you home. - NO public transportation without another adult. - We recommend that an adult stay with you for 24 hours following discharge. - We also recommend that you do not drive, make important decision, drink alcoholic beverages, or take any drugs that were not prescribed by your health care provider for at least 24 hours after your discharge time. Follow any additional instructions given to you from your surgeon. If you or anyone in your household have experienced Covid symptoms in the past week, please notify your surgeon or the nurse liaison at the phone number below for possible testing. Telephone instructions given to ___patient__and asked if any additional questions and then verbalized understanding. Patient advised to call surgeon office or pre surgery nurse liaison [phone] if any additional questions.
[2022-03-06] VITALS (13 sets, daily range): BP systolic 123–167; BP diastolic 59–84; PULSE 66–107; RESP 10–20; TEMP 35.6–36.7; O2SAT 92–100
--- NOTE | 2022-03-06 08:20 | WPDANESEPPF ---
Anes - Initial Pre Proc Eval Procedure: Operation Date: 03/06/22 10:30 Proposed Procedures p Right Total Knee Arthroplasty - Reagan Winter MD Date/Time: 03/06/22 08:20 Surgeon: Reagan Winter MD Pre Op Diagnosis: Prim O A Rt Knee Patient Data Age: 71 Gender: F Height: 1.68 m Weight: 96.9 kg Last Vital Signs Temp 36.1 C L 02/21/22 11:36 Pulse 65 02/21/22 11:36 Resp 16 02/21/22 11:36 BP 159/77 H 02/21/22 11:36 Pulse Ox 95 02/21/22 11:36 O2 Del Method Room Air 02/21/22 11:36 Allergies Allergy/AdvReac Type Severity Reaction Status Date / Time No Known Allergies Allergy Verified 03/06/22 08:50 Home Medications Medication Instructions Recorded Confirmed Type gabapentin 300 mg capsule 600 mg PO HS 10/11/21 03/06/22 History meloxicam 15 mg tablet 15 mg PO DAILY 02/21/22 03/06/22 History multivitamin 1 tablet PO DAILY 02/21/22 03/06/22 History red yeast rice 600 mg tablet 600 mg PO DAILY 02/21/22 03/06/22 History tizanidine 4 mg capsule 4 mg PO QHS PRN Insomnia 02/21/22 03/06/22 History triamterene 37.5 1 tablet PO DAILY 02/21/22 03/06/22 History mg-hydrochlorothiazide 25 mg tablet Patient hx anesthesia problems: none Family hx anesthesia problems: none Results Review: All pre-operative results and documents have been reviewed as part of the pre-operative evaluation. [facility] Past Medical History Medical History Cervical spondylosis with radiculopathy Chronic narcotic use Encounter for immunization Fatigue Hypertension Knee osteoarthritis Nail deformity Obesity (BMI 30-39.9) Sciatica Seborrheic keratosis Surgical History Surgical History History of bladder surgery History of cholecystectomy Family History Family History Father Family history of emphysema Patient's father is Mother Patient's mother is Unknown Hypertension Social History Social History Social History: Patient denies tobacco, alcohol or drug use. She is lifelong nonsmoker. She lives alone. Her daughter will be helping her for next week after the surgery. She is a full code. She nominates her daughter Becky to be the individual would make medical decisions for her if she is unable. Smoking status: Never smoker Second hand tobacco smoke exposure: No Alcohol intake: never Substance use: never Substance use type: does not use Living arrangements: with family Gender identity (if verbalized by the patient): Female Spiritual care concerns: No Anes - Eval Final PreProcedure Day of Procedure 03/06/22 08:20 Patient weight: obese Heart: regular rate and rhythm Lungs: clear to auscultation Airway: Mallampati scale class II Neurological: alert and oriented Last oral intake: >/= 8 hours ASA classification: III Emergent: no Anesthetic plan: proceed Anesthesia type and monitoring: general LMA and standard monitoring Results Review: All pre-operative results and documents have been reviewed as part of the pre-operative evaluation. Informed Consent: The patient's anesthetic plan and its attendant risks and benefits were discussed with the patient/family/POA. Questions were solicited and answers provided to the satisfaction of the patient/family/POA.
--- NOTE | 2022-03-06 08:21 | WPDANESPNB ---
Anes - Peripheral Nerve Block Date/Time: 03/06/22 08:21 I have discussed with the patient/family/POA the placement of a peripheral nerve block for post-operative pain management, including associated risks, benefits, complications, and side effects. Alternative methods of post-operative analgesia were detailed. Questions were solicited and answers provided to the satisfaction of the patient/family/POA. Time-Out: A pre-procedural Time-Out was completed immediately before starting the procedure and confirmed: Patient Identification, Site, Procedure, Patient Position and the Availability of Requisite Equipment. Clinical Indications: Acute post-operative pain management requested by the operative surgeon. Nerve Block Insertion Note Anes-nerve block: adductor canal right Patient position: supine Skin prep: chlorhexidine Needle: 22 gauge, stimulating, insulated echogenic needle. Needle length: 80 mm Technique: ultrasound Injectate: bupivacaine 0.5% with epi 5 mcg/ml (30cc - no epi) Observations: tolerated well Complications: none Procedure start time:: 937 Procedure end time:: 940
[2022-03-06] MEDS: ACETAMINOPHEN 500 MG TABLET 1000 MG PO (09:09)
[2022-03-06] MEDS: LACTATED RINGERS 1,000 ML 30 ML IV CONT ×2 (09:28→13:12)
[2022-03-06] MEDS: TRANEXAMIC ACID 1,000MG/ISO100 1,000 MG/100 ML BAG 200 MG IVPB (09:29)
--- NOTE | 2022-03-06 09:57 | WPDHPUPDATE1 ---
History and Physical Update Update Date/Time: 03/06/22 09:57 History and Physical has been reviewed, including an updated exam of the patient. There are NO changes in the patient's condition. Risks, benefits, and alternatives have been discussed and questions answered. Patient agrees to proceed with procedure.
[2022-03-06] MEDS: ceFAZolin 2 GM/D5W 50 ML 2 GM/50 ML BAG IVPB ×2 (10:02→17:38)
--- NOTE | 2022-03-06 14:55 | ADMGEN ---
This patient, Dang Ibrahim, was admitted to Medical Room 258-01. Patient/family oriented to hospital policies and general routines including ID bracelet, bed and alarms, visiting hours, pain management, procedures, bathroom and other care routines, personal items, smoking policy, room service/diet, and visiting hours. Information on how to activate the Rapid Response Team has been discussed. Patient/Family are encouraged to report perceived risks to care and to ask questions if they do not understand what they are told or what they should do.
--- NOTE | 2022-03-06 15:08 | W.PM.PROC2 ---
Procedure Note - Detailed Date of Procedure 03/06/22 Pre-op Diagnosis Prim O A Rt Knee Post-op Diagnosis Same Procedure Performed Total knee arthroplasty, right. Surgeon Reagan Winter MD Quantitative Research Analyst Marcella Cuevas PA-C Anesthesia General and Regional (subsartorial block) Indications End stage knee arthritis and contracture. Tibial bone erosion and large degnenerative cysts. Findings Complex deformity required stemmed implants and stabilized poly insert. Bone grafting of very large medial femoral condyle cystic defect. Description of Procedure The patient was brought to the operating room. A general anesthetic was administered. The leg was prepped and draped in the usual sterile fashion. The limb was elevated and the tourniquet inflated to 300 mmHg during initial exposure, and cementation. A longitudinal incision was created along the medial border of the patella and patellar tendon, and a trivector approach to the knee was performed. A very large medial release was taken. The knee was then flexed. The osteophytes were carefully removed. The intramedullary guide was placed in the femoral canal. The distal femoral resection was then taken with the oscillating saw at 9mm. The collateral ligaments were carefully protected. The tibia was carefully exposed. The jig was applied, and the proximal tibia was resected according to preoperative plan. Initially, the extramedullary guide was used. Later the IM guide was used once complete exposure of the tibia could be obtained. Osteophytes were so extensive that the tibia was blocked from anterior translation initially. The knee was balanced in extension. Increased medial release was required around to the semimembranosus and deep to the MCL. The collateral ligaments were excised. The patella was measured. Patellar resection was carried out with the oscillating saw. The lug holes drilled. The femur was sized and rotation assessed using a combination of gap balancing, posterior referencing, and the AP axis. The revision cutting block was used after reaming the proximal femur to 15 mm. The osteophytes were carefully removed from the back of the knee. The knee was copiously irrigated with antibiotic solution periodically throughout the procedure. The meniscal remnants were removed. The spacer block was used to confirm equal flexion and extension gaps. Slight needle release was performed. The tibia was prepared for the 50 mm stem. Trial components were assembled. Good motion and balance confirmed with the 11 mm polyethylene. The large cyst in the medial femoral condyle centrally was bone grafted using bone from the anterior chamfer and box cut. Bony surfaces were prepared for cementing with pulsatile lavage. The real tibial and femoral and patellar components were cemented into position. Excess cement was carefully removed. Patellar tracking was carefully assessed. No additional releases were required. Dilute sterile Betadine soak performed for three minutes. Copious irrigation then performed. The wound was closed with #1 Vicryl suture, #2, 2-0, and 3-0 barbed suture, followed by Steri-Strips. A sterile bulky dressing was applied. Meticulous hemostasis was maintained throughout the procedure. The bipolar cautery device was used. The pain relieving mixture was injected into the periarticular tissues during the procedure. There were no complications. The patient was extubated and brought to the recovery room in stable condition after the application of sterile dressing with Rob bandage. Physician tv production assistant, Marcella Cuevas PA-C, required for surgery; including patient positioning, draping, tissue retraction, maintaining instrument position, cement removal, wound closure, and dressing placement. Implants Adaptive TCR Triathlon knee system, universal base plate tibia size 4 with 50 mm cemented stem. 11 mm polyethylene insert TS, total stabilized. Size 4 revision femoral component with 50 mm cemented
[2022-03-06] MEDS: ASPIRIN 81 MG ENTERIC TABLET PO (17:20)
[2022-03-06] MEDS: SENNA/DOCUSATE SODIUM TABLET 2 TAB PO (17:20)
[2022-03-06] MEDS: GABAPENTIN 300 MG CAPSULE 600 MG PO (21:02)
[2022-03-06] MEDS: oxyCODONE HCL (*CRX) 5 MG TAB IR PO (21:03)
--- NOTE | ~2022-03-07 | XR_ITS ---
EXAMINATION: XR knee RT 2V DATE: 03/06/2022 13:40 CDT INDICATION: Right total knee arthroplasty TECHNIQUE: 2 views right knee FINDINGS: There is a right total knee arthroplasty in expected position. Subcutaneous gas with fluid and air in the joint are consistent with recent surgery. No evidence of periprosthetic fracture. IMPRESSION: 1. Recent right total knee arthroplasty. Reviewed, dictated and finalized at location B.
[2022-03-07] MEDS: ceFAZolin 2 GM/D5W 50 ML 2 GM/50 ML BAG IVPB ×2 (02:08→10:25)
[2022-03-07 02:54] VITALS: BP 134/57; PULSE 93; RESP 20; TEMP 36.2; O2SAT 99
[2022-03-07 04:51] VITALS: BP 134/57; PULSE 93; RESP 20; TEMP 36.2; O2SAT 99
[2022-03-07 06:09] LABS: Basophils Percent Auto 0.3 % (0.2-1.2); Eosinophils Absolute Auto 0.1 K/mm3 (0-0.3); Eosinophils Percent Auto 0.7 % (0-4.4); Hematocrit 31.3 % (37.0-47.0); Hemoglobin 9.7 g/dL (12.0-15.0); Immature Granulocyte Absolute 0.06 K/mm3 (0.00-0.031); Immature Granulocyte Percent A 0.7 % (0-0.5); Lymphocytes Absolute Auto 1.42 K/mm3 (0.9-3.2); Lymphocytes Percent Auto 15.7 % (18.3-44.2); Mean Corpuscular Hemoglobin 29.3 pg (26-34); Mean Corpuscular Volume 94.6 fl (80-100); Mean Platelet Volume 10.5 fl (7.4-10.4); Monocytes Percent Auto 11.1 % (2.6-8.5); Neutrophils Absolute Auto 6.5 K/mm3 (1.3-6.7); Neutrophils Percent Auto 71.5 % (45.5-73.1); Platelet Count Result 192 k/mm3 (150-375); Red Blood Count 3.31 M/mm3 (4.2-5.4); Red Cell Distribution Width 13.5 % (11.5-14.5)
[2022-03-07 06:17] LABS: Anion Gap 8 mmol/L (8-16); Blood Urea Nitrogen 23 mg/dL (7-17); Calcium 8.4 mg/dL (8.4-10.2); Carbon Dioxide 28 mmol/L (22-30); Chloride 96 mmol/L (98-107); Estimated CRCL calculation 63 ml/min; Estimated Glomerular Filt Rate > 60; Glucose 136 mg/dL (65-110); Potassium 3.5 mmol/L (3.4-5.0); Sodium 132 mmol/L (137-145)
[2022-03-07] MEDS: SENNA/DOCUSATE SODIUM TABLET 2 TAB PO ×2 (08:09→17:14)
[2022-03-07] MEDS: TRIAMTERENE 37.5 MG/HCTZ 25 MG (MAXZIDE) TABLET 1 TAB PO (08:09)
[2022-03-07] MEDS: ASPIRIN 81 MG ENTERIC TABLET PO ×2 (08:10→17:14)
[2022-03-07] MEDS: polyethylene glycoL 3350 17 GM POWD.PACK PO (08:10)
[2022-03-07] MEDS: predniSONE 5 MG TABLET PO (08:10)
[2022-03-07 10:00] VITALS: BP 166/75; PULSE 78; RESP 18; TEMP 36.6; O2SAT 94
--- NOTE | 2022-03-07 10:01 | WPDANESPN ---
Anes - Prog Note Post-Op Date/Time: 03/07/22 10:01 Cardiovascular status: normal Respiratory status: normal Airway patency: baseline Mental status: baseline Post-Op hydration status: normal Vital Signs: Last Vital Signs Temp 36.2 C L 03/07/22 04:51 Pulse 93 03/07/22 04:51 Resp 20 03/07/22 04:51 BP 134/57 L 03/07/22 04:51 Pulse Ox 99 03/07/22 04:51 O2 Del Method Room Air 03/06/22 20:00 O2 Flow Rate 2 03/06/22 15:00 Pain Score (VAS): 2 I/O: Intake & Output 03/06/22 03/07/22 03/07/22 23:59 07:59 15:59 Intake Total 580 540 Balance 580 540 Laboratory Tests 03/07/22 05:36 03/07/22 05:36 03/07/22 03/07/22 05:36 05:36 WBC 9.0 RBC 3.31 L Hgb 9.7 L Hct 31.3 L MCV 94.6 MCH 29.3 MCHC 31.0 L RDW 13.5 Plt Count 192 MPV 10.5 H Immature Gran % (Auto) 0.7 H Neut % (Auto) 71.5 Lymph % (Auto) 15.7 L [place] % (Auto) 11.1 H Eos % (Auto) 0.7 Baso % (Auto) 0.3 Lymph # (Auto) 1.42 [place] # (Auto) 1.0 H Eos # (Auto) 0.1 Baso # (Auto) 0.0 Abs Immat Gran (auto) 0.06 H Absolute Neuts (auto) 6.5 Absolute Nucleated RBC 0.0 Nucleated RBC % 0.0 Sodium 132 L Potassium 3.5 Chloride 96 L Carbon Dioxide 28 Anion Gap 8 BUN 23 H Creatinine 0.80 Estim Creat Clear Calc 63 Estimated GFR > 60 Glucose 136 H Calcium 8.4 Post-procedural complaints: none Patient Feedback: Patient satisfied with anesthetic care.
[2022-03-07] MEDS: oxyCODONE HCL (*CRX) 5 MG TAB IR 10 MG PO ×2 (10:36→20:34)
--- NOTE | 2022-03-07 11:07 | PM.IMCN ---
Assessment and Plan Assessment and plan (1) Status post total right knee replacement: Code(s): Z96.651 - Presence of right artificial knee joint Status: Acute Assessment and Plan: Postoperative day 1 management per Orthopedic surgery continue PT/OT supportive care patient plans to return home following discharge. Her daughter will be staying with her until she is more mobile. She has no stairs in her apartment. She plans to begin outpatient physical therapy on 03/20/2022. (2) Hypertension: Code(s): I10 - Essential (primary) hypertension Status: Acute Assessment and Plan: blood pressures reviewed and are slightly fluctuant. BP elevated this morning at 166/75. suspect may be mildly elevated compared to baseline due to pain continue home triamterene-hydrochlorothiazide monitor blood pressure trends (3) Cervical radiculopathy: Code(s): M54.12 - Radiculopathy, cervical region Status: Acute Assessment and Plan: patient follows with pain management recently had steroid injection with symptomatic improvement continue home regimen of gabapentin and tizanidine (4) Prediabetes: Code(s): R73.03 - Prediabetes Status: Acute Assessment and Plan: A1c is 5.0 blood sugars stable this hospitalization, ranging 94-136 mg/dl no need for further monitoring at this time (5) Anemia: Code(s): D64.9 - Anemia, unspecified Status: Acute Assessment and Plan: Normocytic anemia Sllight decline from prior labs 1 month ago, however hemoglobin and hematocrit appear consistent with labs from 4 months ago. No active bleeding HPI Data of Consult Consult date: 03/07/22 Requesting Physician: Lynette Shabazz PA-C Primary Care Provider: Daria Warner MD Consult Narrative Narrative: Date of service: 03/07/2022 Dang Ibrahim is a 71 year old female with a history of chronic neck pain, hypertension, and osteoarthritis who is postoperative day 1 status post right total knee arthroplasty performed by Dr. Winter. she is seen in consultation for medical management. She is doing well at this time. She tolerated her procedure well. Her pain has been well controlled. This morning her pain was about 1-2/10. She did get up and walk down the halls with therapy. She did very well with this but was sore afterwards. Her pain increased to about 5-6/10 following her therapy session. She had no issues with anesthesia. She denies shortness of breath, chest pain, palpitations. No nausea, vomiting, fever, chills, abdominal pain. She is tolerating her diet. She is able to urinate independently and is walking to the bathroom. her last bowel movement was 3 days ago. Her neck pain is at baseline. She recently had which she believes is a steroid injection at her pain management clinic about 2 weeks ago. She has no additional concerns at this time. Review of Systems Review of Systems: All systems reviewed & are unremarkable except as noted in HPI and below PMFSH Past Medical History Medical History (Updated 03/07/22 @ 11:12 by Lynette Shabazz PA-C) Cervical spondylosis with radiculopathy Fatigue Hypertension Knee osteoarthritis Nail deformity Obesity (BMI 30-39.9) Sciatica Seborrheic keratosis Surgical History Surgical History (Updated 03/07/22 @ 11:12 by Lynette Shabazz PA-C) History of bladder surgery History of carpal tunnel surgery History of cholecystectomy History of hysterectomy Family History Family History (Updated 03/07/22 @ 11:13 by Lynette Shabazz PA-C) Father Family history of emphysema Patient's father is Asthma Mother Patient's mother is Congestive heart failure Social History Social History (Updated 03/07/22 @ 11:15 by Lynette Shabazz PA-C) Social History: lives in her apartment alone works part-time doing [employer]
[2022-03-07 14:00] VITALS: BP 167/74; PULSE 104; RESP 18; TEMP 36.9; O2SAT 95
--- NOTE | 2022-03-07 16:22 | PM.PNORT ---
Progress Note: A&P Assessment and Plan (1) Status post total right knee replacement: Code(s): Z96.651 - Presence of right artificial knee joint Status: Acute Assessment and Plan: Pain well controlled. Mobilizing slowly. Examination Wound healing well without drainage. Mild swelling. No distal edema. Distal neurovascular status intact. Impression Postoperative day 1 status post total knee arthroplasty, with extensive reconstructive on the right knee. Required bone grafting and stemmed tibia and femoral components with highly constrained polyethylene insert. Due to the complexity and extensive nature of the surgery, patient will benefit from further inpatient stay. Will assess her progress tomorrow, for possible discharge. Subjective Subjective Date/Time Seen: 03/07/22 16:22 Objective Data Vital Signs Vital Signs: Vital Signs - 24 hr 03/06/22 16:53 03/06/22 18:54 03/06/22 20:00 Temperature 35.6 C L Pulse Rate 80 Respiratory Rate 18 20 Blood Pressure 138/59 L Pulse Oximetry 96 100 Oxygen Delivery Room Air Room Air 03/06/22 22:54 03/07/22 02:54 03/07/22 04:51 Temperature 35.6 C L 36.2 C L 36.2 C L Pulse Rate 107 H 93 93 Respiratory Rate 20 20 20 Blood Pressure 160/82 H 134/57 L 134/57 L Pulse Oximetry 100 99 99 Oxygen Delivery 03/07/22 10:00 03/07/22 14:00 Temperature 36.6 C 36.9 C Pulse Rate 78 104 H Respiratory Rate 18 18 Blood Pressure 166/75 H 167/74 H Pulse Oximetry 94 95 Oxygen Delivery Intake/Output Intake/Output: Intake & Output 03/04/22 03/05/22 03/06/22 03/07/22 23:59 23:59 23:59 23:59 Intake Total 1830 690 Balance 1830 690 Meds/Results Medications: Active Medications Generic Name Dose Route Start Last Admin Trade Name Freq PRN Reason Stop Dose Admin Acetaminophen 1,000 mg 03/07/22 12:00 Acetaminophen 500 Mg Tablet PO Q6H PRN Pain Rated 1-3 Aspirin 81 mg 03/06/22 17:00 03/07/22 08:10 Aspirin 81 Mg Enteric Tablet PO 81 mg BID DAO Administration Cyclobenzaprine HCl 10 mg 03/06/22 13:09 Cyclobenzaprine Hcl 10 Mg Tablet PO Q8H PRN Spasms Diphenhydramine HCl 25 mg 03/06/22 13:09 Diphenhydramine Hcl Inj 50 Mg/Ml Vial IV PUSH Q6H PRN Itching Gabapentin 600 mg 03/06/22 21:00 03/06/22 21:02 Gabapentin 300 Mg Capsule PO 600 mg HS DAO Administration Lactated Ringer's 1,000 mls @ 30 mls/hr 03/06/22 08:25 03/07/22 06:06 Lr - Lactated Ringers Iv IV CONT Not Given .Q24H DAO Naloxone HCl 0.1 mg 03/06/22 13:09 Naloxone Hcl 0.4 Mg/Ml Vial IV PUSH Q2M PRN Opiate Reversal Ondansetron HCl 4 mg 03/06/22 08:21 Ondansetron Inj 4 Mg/2 Ml Vial IV PUSH ONCE PRN Nausea Ondansetron HCl 4 mg 03/06/22 13:09 Ondansetron Inj 4 Mg/2 Ml Vial IV PUSH Q4H PRN Nausea And Vomiting Oxycodone HCl 5 mg 03/06/22 13:09 03/06/22 21:03 Oxycodone Hcl (*Crx) 5 Mg Tab Ir PO 5 mg Q4H PRN Administration Pain Rated 4-6 Oxycodone HCl 10 mg 03/06/22 13:09 03/07/22 10:36 Oxycodone Hcl (*Crx) 5 Mg Tab Ir PO 10 mg Q4H PRN Administration Pain Rated 7-10 Polyethylene Glycol 17 gm 03/07/22 09:00 03/07/22 08:10 Polyethylene Glycol 3350 17 Gm Powd.Pack PO 17 gm QAM DAO Administration Prednisone 5 mg 03/07/22 08:00 03/07/22 08:10 Prednisone 5 Mg Tablet PO 5 mg DAILY@0800 DAO Administration Senna/Docusate Sodium 2 tab 03/06/22 17:00 03/07/22 08:09 Senna/Docusate Sodium Tablet PO 2 tab BID DAO Administration Tizanidine HCl 4 mg 03/06/22 13:08 Tizanidine Hcl 4 Mg Tablet PO QHS PRN NECK PAIN Triamterene/Hydrochlorothiazide 1 tab 03/07/22 09:00 03/07/22 08:09 Triamterene 37.5 Mg/Hctz 25 Mg (Maxzide) Tablet PO 1 tab DAILY DAO Administration Radiology Results: ITS Impressions Knee X-Ray 03/06/22 13:40 IMPRESSION: 1. Recent right total kne
[2022-03-07 18:00] VITALS: PULSE 100; RESP 18; TEMP 37; O2SAT 94
[2022-03-07] MEDS: GABAPENTIN 300 MG CAPSULE 600 MG PO (20:33)
[2022-03-07 20:58] VITALS: BP 170/92; PULSE 104; RESP 18; TEMP 36.9; O2SAT 97
[2022-03-08 05:22] VITALS: BP 139/66; PULSE 110; RESP 20; TEMP 36.9; O2SAT 97
[2022-03-08] MEDS: ASPIRIN 81 MG ENTERIC TABLET PO (08:27)
[2022-03-08] MEDS: predniSONE 5 MG TABLET PO (08:27)
[2022-03-08] MEDS: SENNA/DOCUSATE SODIUM TABLET 2 TAB PO (08:27)
[2022-03-08] MEDS: polyethylene glycoL 3350 17 GM POWD.PACK PO (08:27)
[2022-03-08] MEDS: TRIAMTERENE 37.5 MG/HCTZ 25 MG (MAXZIDE) TABLET 1 TAB PO (08:30)
[2022-03-08 08:31] VITALS: BP 132/74
[2022-03-08] MEDS: oxyCODONE HCL (*CRX) 5 MG TAB IR 10 MG PO (08:40)
--- NOTE | 2022-03-08 08:57 | PCPTNOTE ---
Attempted to see patient for PT at this time, however patient was eating breakfast.
--- NOTE | 2022-03-08 10:50 | PM.IMPN ---
Progress Note: A&P Assessment and Plan (1) Status post total right knee replacement: Code(s): Z96.651 - Presence of right artificial knee joint Status: Acute Assessment and Plan: Postoperative day 2 management per Orthopedic surgery continue PT/OT supportive care patient plans to return home following discharge. Her daughter will be staying with her until she is more mobile. She has no stairs in her apartment. She plans to begin outpatient physical therapy on 03/20/2022. (2) Hypertension: Code(s): I10 - Essential (primary) hypertension Status: Acute Assessment and Plan: blood pressures reviewed and were slightly elevated but improved today. suspect may be mildly elevated compared to baseline due to pain continue home triamterene-hydrochlorothiazide monitor blood pressure trends (3) Cervical radiculopathy: Code(s): M54.12 - Radiculopathy, cervical region Status: Acute Assessment and Plan: patient follows with pain management recently had steroid injection with symptomatic improvement continue home regimen of gabapentin and tizanidine (4) Prediabetes: Code(s): R73.03 - Prediabetes Status: Acute Assessment and Plan: A1c is 5.0 blood sugars stable this hospitalization no need for further monitoring (5) Anemia: Code(s): D64.9 - Anemia, unspecified Status: Acute Assessment and Plan: Normocytic anemia Sllight decline from prior labs 1 month ago, however hemoglobin and hematocrit appear consistent with labs from 4 months ago. No active bleeding Subjective Date/time seen: 03/08/22 10:50 Interval history: date of service: 03/08/2022 Dang Ibrahim is a 71 year old female? with a history of chronic neck pain, hypertension, and osteoarthritis who is postoperative day 2 status post right total knee arthroplasty. she is feeling well today. She is participating with therapy and has been able to walk in the halls. At this time, she describes aching discomfort of her knee which she rates as 3/10. She denies shortness of breath, chest pain, or palpitations. Denies anxiety. Denies nausea, vomiting, fever, chills. She has been voiding without difficulty. She is passing flatus but has not had a bowel movement. Review of Systems Review of Systems: All systems reviewed & are unremarkable except as noted in HPI and below Exam Narrative: General: well-nourished, well-appearing 71-year-old female, sitting in bed, comfortable, NARD Neuro: awake, alert and oriented x4, speech clear, no focal neuro deficits noted HEENMT: normocephalic, atraumatic, EOMI, sclerae anicteric, moist oral mucosa Respiratory: clear to auscultation bilaterally, nonlabored breathing Cardio: regular rate, regular rhythm with S1-S2 Abdomen: nondistended, normoactive bowel sounds, soft, nontender to palpation Extremities: Right thigh nontender to palpation, right knee covered with ice pack, bilateral lower extremities without edema, erythema, or tenderness to palpation, DP pulses 2+ bilaterally Skin: no rashes or lesions, warm and dry Psych: appropriate mood and affect, judgment and insight intact Objective Data Vital Signs Vital Signs: Vital Signs - 24 hr 03/07/22 14:00 03/07/22 18:00 03/07/22 20:58 Temperature 98.4 F 98.6 F 98.4 F Pulse Rate 104 H 100 104 H Respiratory Rate 18 18 18 Blood Pressure 167/74 H 170/92 H Pulse Oximetry 95 94 97 Oxygen Delivery 03/07/22 20:32 03/08/22 05:22 03/08/22 08:31 Temperature 98.4 F Pulse Rate 110 H Respiratory Rate 20 Blood Pressure 139/66 132/74 Pulse Oximetry 97 Oxygen Delivery Room Air 03/08/22 08:30 Temperature Pulse Rate Respiratory Rate Blood Pressure Pulse Oximetry Oxygen Delivery Room Air Intake/Output Intake/Output: Intake & Output 03/05/22 03/06/22 03/07/22 03/08/22 23:59 23:59 23:59 23:59 Intake Total
[2022-03-08 13:45] VITALS: BP 146/67; PULSE 100; RESP 16; TEMP 37; O2SAT 97
--- NOTE | 2022-03-08 14:42 | PC.NURSE ---
On 03/08/22, the License pending nurse, Slava Shaw, provided care and completed [employer] documentation on this patient. I have reviewed the License pending nurse's documentation and agree with the findings.
--- NOTE | 2022-03-08 15:50 | PM.DS ---
DS: Admitting Diagnosis Discharge Date 03/08/22 Admitting Diagnosis Right knee djd. DS: Discharge Diagnosis Discharge Diagnosis (1) Status post total right knee replacement: Code(s): Z96.651 - Presence of right artificial knee joint Status: Acute DS: Summary Hospital Course Reason for hospitalization: Total knee arthroplasty. Hospital Course: Tolerated surgery well. Progressed appropriately with therapy. Status at Discharge Functional status at discharge: uses cane/walker Overall status at discharge: patient is progressing back to baseline Time Spent with Patient Time attestation: Total time spent providing and/or coordinating discharge services: Exam Const: General: no acute distress Resp: Effort & Inspection: normal respiratory effort Skin: Other: Wound healing well. Mepilex dressing intact. No hematoma or drainage. Neuro: Motor exam (neuro): 5/5 motor strength present throughout Sensory Exam: normal sensation Psych: Mental Status: mental status grossly normal Speech and movement: Normal speech and movement present Discharge Plan Discharge Attending physician on discharge: Reagan Winter Consulting providers: Jose Miguel Odell ; Maico Abraham ; Lynette Shabazz Discharging Clinician: Reagan Winter Patient Disposition: Home, Self-Care Activity: may shower Diet: as tolerated Wound Care Instructions: follow printed instructions Discharge Instructions: See instruction sheet. Patient Instructions: Antibiotic Form, Oxycodone/Acetaminophen (By mouth), Pain Management (DC), Precautions after Total Joint Replacement Surgery (ED), Knee Replacement (DC), Blood Thinners (DC) Stand Alone Forms: General Discharge Instructions Follow-up/Referrals: Reagan Winter MD [Physician] - Discharge Medications: New aspirin 81 mg Tablet,Delayed Release (Dr/Ec) 81 mg PO BID Qty: 30 0RF oxycodone-acetaminophen 5-325 mg tablet 1 - 2 tablet PO Q4-6H MDD 6 tablets PRN (Reason: pain) Qty: 30 0RF prednisone 5 mg tablet 5 mg PO DAILY Qty: 30 0RF Rx Instructions: take 5 tabs for 2 days, then 4 tabs for 2 days, then 3 tabs for 2 days, then 2 tabs for 2 days, then 1 tab for 2 days. Continued tizanidine 4 mg capsule 4 mg PO QHS PRN (Reason: Muscle Pain) Rx Instructions: takes at hs for neck pain gabapentin 300 mg capsule 600 mg PO HS multivitamin Tablet 1 tablet PO DAILY red yeast rice 600 mg Tablet 600 mg PO DAILY Rx Instructions: give with meal/snack meloxicam 15 mg tablet 15 mg PO DAILY Label Comments: med on hold while injections to neck for pain control triamterene-hydrochlorothiazid 37.5-25 mg tablet 1 tablet PO DAILY Date of admission: 03/07/22 18:15 Primary Care Provider: Daria Warner Admitting Provider: Reagan Winter Attending physician on admission: Reagan Winter Condition: Stable Quality VTE Prophylaxis VTE prophylaxis: mechanical ordered (LEE rosario and Joelle)
== END 2022-03-08 14:38 | disposition home or self-care (01) ==
LOC: ANHSURGERY 19:23 → ANH2MED 03-08 10:52
PROVIDERS: Physician Assistant Surgical; Admitting Provider Orthopaedic Surgery; PCP Family Medicine; Visit Provider Orthopaedic Surgery
PROC: (CPT 27447; principal; 2022-03-06 10:30)
DX: M17.11 Unilateral primary osteoarthritis, right knee (principal); I10 Essential (primary) hypertension; M47.22 Other spondylosis with radiculopathy, cervical region; R73.03 Prediabetes; D64.9 Anemia, unspecified; G89.18 Other acute postprocedural pain; E66.9 Obesity, unspecified; Z68.33 Body mass index [BMI] 33.0-33.9, adult; Z79.82 Long term (current) use of aspirin; Z79.891 Long term (current) use of opiate analgesic; Z79.52 Long term (current) use of systemic steroids; Z79.899 Other long term (current) drug therapy; Z82.49 Family history of ischemic heart disease and other diseases of the circulatory system
CPT/HCPCS: 27447; 64447; 36415; 73560; 80048; 80307; 85025; 86850; 86900; 86901; 87081; 97110; 97116; 97161; 97165; 97530; 97535; A9270; C1713; C1776; G0378; G0379; J0131; J0171; J0690; J1100; J1170; J1885; J2250; J2270; J2405; J2704; J2795; J3010; J7120; J7512

== ENCOUNTER 2022-03-12 14:31 | Outpatient (CLI) | payer MEDICARE, SELFPAY ==
--- NOTE | ~2022-03-12 | US_ITS ---
EXAMINATION: US venous doppler LE RT DATE: 03/12/2022 15:22 INDICATION: Right lower limb swelling TECHNIQUE: Jimenes scale images without and with compression and Doppler images of the right lower extre mity veins were obtained. COMPARISON: 11/09/2021 FINDINGS: The right common femoral vein, profunda femoral vein, femoral vein, popliteal vein, peronea l trunk, posterior tibial veins, and greater saphenous vein are patent. IMPRESSION: 1. Patent right lower extremity veins. No evidence of deep venous thrombosis. Reviewed, dictated and finalized at location B.
== END 2022-03-12 14:32 | disposition home or self-care (01) ==
PROVIDERS: PCP Family Medicine; Visit Provider Orthopaedic Surgery
DX: M79.89 Other specified soft tissue disorders (principal)
CPT/HCPCS: 93971

== ENCOUNTER 2022-04-11 10:57 | Outpatient (CLI) | payer MEDICARE, SELFPAY ==
[2022-04-11 11:16] LABS: Basophils Percent Auto 0.4 % (0.2-1.2); Eosinophils Absolute Auto 0.1 K/mm3 (0-0.3); Eosinophils Percent Auto 1.5 % (0-4.4); Hematocrit 33.9 % (37.0-47.0); Hemoglobin 10.2 g/dL (12.0-15.0); Immature Granulocyte Absolute 0.03 K/mm3 (0.00-0.031); Immature Granulocyte Percent A 0.4 % (0-0.5); Immature Reticulocyte Fraction 23.2 % (3.0-15.9); Lymphocytes Absolute Auto 2.17 K/mm3 (0.9-3.2); Lymphocytes Percent Auto 32.2 % (18.3-44.2); Mean Corpuscular HGB Conc 30.1 g/dl (32-36); Mean Corpuscular Hemoglobin 28.3 pg (26-34); Mean Corpuscular Volume 93.9 fl (80-100); Monocytes Absolute Auto 0.5 K/mm3 (0.1-0.6); Monocytes Percent Auto 6.8 % (2.6-8.5); Neutrophils Percent Auto 58.7 % (45.5-73.1); Platelet Count Result 263 k/mm3 (150-375); Red Blood Count 3.61 M/mm3 (4.2-5.4); Red Cell Distribution Width 14.6 % (11.5-14.5); Reticulocyte Hemoglobin Conten 31.3 pg (28.2-35.7); Reticulocyte Percent 2.98 % (0.7-4.3); Reticulocytes Absolute 0.11 B/L (32.2-175.7); White Blood Count 6.7 K/mm3 (4.5-10.0)
[2022-04-11 12:07] LABS: Alanine Aminotransferase 18 U/L (6-35); Albumin Level 4.3 g/dL (3.5-5.1); Alkaline Phosphatase 138 U/L (38-126); Anion Gap 10 mmol/L (8-16); Aspartate Amino Transferase 27 U/L (14-36); Bilirubin,Total 0.5 mg/dL (0.2-1.3); Blood Urea Nitrogen 16 mg/dL (7-17); Calcium 9.4 mg/dL (8.4-10.2); Carbon Dioxide 28 mmol/L (22-30); Chloride 103 mmol/L (98-107); Estimated Glomerular Filt Rate > 60; Glucose 94 mg/dL (65-110); Potassium 3.4 mmol/L (3.4-5.0); Sodium 141 mmol/L (137-145)
[2022-04-11 13:03] LABS: Folic Acid 16.7 ng/mL (2.76->20)
[2022-04-15 11:35] LABS: Methylmalonic Acid 132 nmol/L (87-318)
[2022-04-16 20:22] LABS: Soluble Transferrin Receptor 2.58 mg/L (0.76-1.76)
== END 2022-04-11 10:58 | disposition home or self-care (01) ==
LOC: ANHLAB 10:59
PROVIDERS: PCP Family Medicine; Visit Provider Internal Medicine Hematology & Oncology
DX: D64.9 Anemia, unspecified (principal)
CPT/HCPCS: 36415; 80053; 82607; 82728; 82746; 83921; 84238; 85025; 85046

== ENCOUNTER 2022-06-02 07:13 | Outpatient (CLI) | payer MEDICARE, SELFPAY ==
[2022-06-02 07:26] LABS: Basophils Percent Auto 0.4 % (0.2-1.2); Eosinophils Absolute Auto 0.2 K/mm3 (0-0.3); Hemoglobin 10.9 g/dL (12.0-15.0); Immature Granulocyte Absolute 0.04 K/mm3 (0.00-0.031); Immature Granulocyte Percent A 0.5 % (0-0.5); Lymphocytes Absolute Auto 2.62 K/mm3 (0.9-3.2); Lymphocytes Percent Auto 35.3 % (18.3-44.2); Mean Corpuscular HGB Conc 31.1 g/dl (32-36); Mean Corpuscular Hemoglobin 28.1 pg (26-34); Mean Corpuscular Volume 90.2 fl (80-100); Mean Platelet Volume 9.3 fl (7.4-10.4); Monocytes Absolute Auto 0.6 K/mm3 (0.1-0.6); Monocytes Percent Auto 8.2 % (2.6-8.5); Neutrophils Percent Auto 53.6 % (45.5-73.1); Platelet Count Result 243 k/mm3 (150-375); Red Blood Count 3.88 M/mm3 (4.2-5.4); Red Cell Distribution Width 13.9 % (11.5-14.5); White Blood Count 7.4 K/mm3 (4.5-10.0)
[2022-06-02 07:36] LABS: Alanine Aminotransferase 15 U/L (6-35); Albumin Level 4.2 g/dL (3.5-5.1); Alkaline Phosphatase 117 U/L (38-126); Anion Gap 11 mmol/L (8-16); Aspartate Amino Transferase 27 U/L (14-36); Bilirubin,Total 0.4 mg/dL (0.2-1.3); Blood Urea Nitrogen 18 mg/dL (7-17); Calcium 8.9 mg/dL (8.4-10.2); Carbon Dioxide 30 mmol/L (22-30); Chloride 102 mmol/L (98-107); Estimated Glomerular Filt Rate > 60; Glucose 105 mg/dL (65-110); Potassium 3.8 mmol/L (3.4-5.0); Sodium 143 mmol/L (137-145)
== END 2022-06-02 07:14 | disposition home or self-care (01) ==
PROVIDERS: PCP Family Medicine; Visit Provider Family Medicine
DX: R73.03 Prediabetes (principal); D64.9 Anemia, unspecified
CPT/HCPCS: 36415; 80053; 85025

== ENCOUNTER 2022-08-16 10:46 | Outpatient (CLI) | payer MEDICARE, SELFPAY ==
[2022-08-16 11:00] LABS: Basophils Percent Auto 0.4 % (0.2-1.2); Eosinophils Absolute Auto 0.1 K/mm3 (0-0.3); Eosinophils Percent Auto 1.5 % (0-4.4); Hematocrit 37.9 % (37.0-47.0); Hemoglobin 12.3 g/dL (12.0-15.0); Immature Granulocyte Absolute 0.03 K/mm3 (0.00-0.031); Immature Granulocyte Percent A 0.3 % (0-0.5); Lymphocytes Absolute Auto 2.58 K/mm3 (0.9-3.2); Lymphocytes Percent Auto 27.6 % (18.3-44.2); Mean Corpuscular HGB Conc 32.5 g/dl (32-36); Mean Corpuscular Volume 92.4 fl (80-100); Mean Platelet Volume 9.7 fl (7.4-10.4); Monocytes Absolute Auto 0.7 K/mm3 (0.1-0.6); Monocytes Percent Auto 7.7 % (2.6-8.5); Neutrophils Absolute Auto 5.8 K/mm3 (1.3-6.7); Neutrophils Percent Auto 62.5 % (45.5-73.1); Platelet Count Result 220 k/mm3 (150-375); Red Cell Distribution Width 13.2 % (11.5-14.5); White Blood Count 9.4 K/mm3 (4.5-10.0)
[2022-08-16 11:32] LABS: Anion Gap 5 mmol/L (8-16); Blood Urea Nitrogen 14 mg/dL (7-17); Carbon Dioxide 34 mmol/L (22-30); Chloride 97 mmol/L (98-107); Estimated Glomerular Filt Rate > 60; Glucose 90 mg/dL (65-110); Potassium 3.2 mmol/L (3.4-5.0); Sodium 136 mmol/L (137-145)
[2022-08-16 13:04] LABS: Iron 76 ug/dL (37-170)
[2022-08-16 13:15] LABS: Percent Iron Saturation 21 % (20-50)
== END 2022-08-16 10:47 | disposition home or self-care (01) ==
LOC: ANHLAB 10:47
PROVIDERS: PCP Family Medicine; Visit Provider Internal Medicine Hematology & Oncology
DX: D64.9 Anemia, unspecified (principal)
CPT/HCPCS: 36415; 80048; 82728; 83540; 83550; 85025

== ENCOUNTER 2023-02-20 10:55 | Outpatient (CLI) | payer MEDICARE, SELFPAY ==
[2023-02-20 11:20] LABS: Basophils Percent Auto 0.5 % (0.2-1.2); Eosinophils Absolute Auto 0.2 K/mm3 (0-0.3); Eosinophils Percent Auto 2.2 % (0-4.4); Hematocrit 40.1 % (37.0-47.0); Hemoglobin 12.9 g/dL (12.0-15.0); Immature Granulocyte Absolute 0.02 K/mm3 (0.00-0.031); Immature Granulocyte Percent A 0.3 % (0-0.5); Lymphocytes Absolute Auto 2.65 K/mm3 (0.9-3.2); Lymphocytes Percent Auto 34.1 % (18.3-44.2); Mean Corpuscular HGB Conc 32.2 g/dl (32-36); Mean Corpuscular Hemoglobin 30.5 pg (26-34); Mean Corpuscular Volume 94.8 fl (80-100); Mean Platelet Volume 9.7 fl (7.4-10.4); Monocytes Absolute Auto 0.4 K/mm3 (0.1-0.6); Monocytes Percent Auto 5.7 % (2.6-8.5); Neutrophils Absolute Auto 4.5 K/mm3 (1.3-6.7); Neutrophils Percent Auto 57.2 % (45.5-73.1); Platelet Count Result 255 k/mm3 (150-375); Red Blood Count 4.23 M/mm3 (4.2-5.4); Red Cell Distribution Width 12.8 % (11.5-14.5); White Blood Count 7.8 K/mm3 (4.5-10.0)
[2023-02-20 15:35] LABS: Iron 81 ug/dL (37-170)
[2023-02-20 15:37] LABS: Alanine Aminotransferase 22 U/L (6-35); Albumin Level 4.6 g/dL (3.5-5.1); Alkaline Phosphatase 131 U/L (38-126); Anion Gap 9 mmol/L (8-16); Aspartate Amino Transferase 29 U/L (14-36); Bilirubin,Total 0.6 mg/dL (0.2-1.3); Blood Urea Nitrogen 29 mg/dL (7-17); Calcium 9.7 mg/dL (8.4-10.2); Carbon Dioxide 31 mmol/L (22-30); Chloride 101 mmol/L (98-107); Cholesterol 175 mg/dL (0-200); Estimated Glomerular Filt Rate > 60; Glucose 87 mg/dL (65-110); HDL Direct 37 mg/dL; Potassium 3.8 mmol/L (3.4-5.0); Sodium 141 mmol/L (137-145); Triglycerides 120 mg/dL (<150)
[2023-02-20 15:45] LABS: Percent Iron Saturation 19 % (20-50)
[2023-02-20 15:48] LABS: LDL Cholesterol Direct 90 mg/dL
[2023-02-20 15:54] LABS: Vitamin D 25 Hydroxy 43.6 ng/mL
== END 2023-02-20 10:56 | disposition home or self-care (01) ==
LOC: ANHLAB 10:59
PROVIDERS: Internal Medicine Hematology & Oncology; PCP Family Medicine; Visit Provider Family Medicine
DX: R53.83 Other fatigue (principal); I10 Essential (primary) hypertension; E55.9 Vitamin D deficiency, unspecified; E78.2 Mixed hyperlipidemia; D64.9 Anemia, unspecified
CPT/HCPCS: 36415; 80053; 80061; 82306; 82728; 83540; 83550; 84443; 85025

== ENCOUNTER 2023-03-12 06:34 | Outpatient (CLI) | payer MEDICARE, SELFPAY ==
--- NOTE | ~2023-03-12 | MR_ITS ---
EXAMINATION: MR brain/brain stem wo/w con DATE: 03/12/2023 07:31 INDICATION: Dizziness and giddiness. TECHNIQUE: Magnetic resonance imaging (MRI) of the brain and brainstem was performed without and with 19 mL MultiHance intravenous contrast. COMPARISON: None. FINDINGS: There are scattered areas of nonspecific increased T2-weighted signal intensity in the cere bral white matter, which is within normal limits for the patient's age. There is no intracranial hemo rrhage, acute infarction, or abnormal intracranial mass lesion. The ventricles are normal in size. Th ere is mild mucosal thickening in the ethmoid sinuses. The mastoid air cells are normal. There are li ben changes of left ocular lens replacement surgery. IMPRESSION: 1. Normal aging brain. Reviewed, dictated and finalized at location A. IMPRESSION: 1. Normal aging brain.
== END 2023-03-12 06:35 | disposition home or self-care (01) ==
PROVIDERS: PCP Family Medicine; Visit Provider Family Medicine
DX: R40.4 Transient alteration of awareness (principal); R41.3 Other amnesia; R42 Dizziness and giddiness
CPT/HCPCS: 70553; A9577

== ENCOUNTER 2023-07-06 07:01 | Outpatient (CLI) | payer MEDICARE, MEDICAID, SELFPAY ==
[2023-07-06 07:18] LABS: Basophils Percent Auto 0.4 % (0.2-1.2); Eosinophils Absolute Auto 0.2 K/mm3 (0-0.3); Eosinophils Percent Auto 2.5 % (0-4.4); Hematocrit 35.6 % (37.0-47.0); Hemoglobin 11.2 g/dL (12.0-15.0); Immature Granulocyte Absolute 0.03 K/mm3 (0.00-0.031); Immature Granulocyte Percent A 0.4 % (0-0.5); Lymphocytes Absolute Auto 2.56 K/mm3 (0.9-3.2); Lymphocytes Percent Auto 30.2 % (18.3-44.2); Mean Corpuscular HGB Conc 31.5 g/dl (32-36); Mean Corpuscular Hemoglobin 30.4 pg (26-34); Mean Corpuscular Volume 96.7 fl (80-100); Mean Platelet Volume 9.1 fl (7.4-10.4); Monocytes Absolute Auto 0.7 K/mm3 (0.1-0.6); Monocytes Percent Auto 7.8 % (2.6-8.5); Neutrophils Percent Auto 58.7 % (45.5-73.1); Platelet Count Result 245 k/mm3 (150-375); Red Blood Count 3.68 M/mm3 (4.2-5.4); Red Cell Distribution Width 13.1 % (11.5-14.5); White Blood Count 8.5 K/mm3 (4.5-10.0)
[2023-07-06 07:29] LABS: Alanine Aminotransferase 19 U/L (6-35); Albumin Level 4.1 g/dL (3.5-5.1); Alkaline Phosphatase 108 U/L (38-126); Anion Gap 5 mmol/L (8-16); Aspartate Amino Transferase 29 U/L (14-36); Bilirubin,Total 0.4 mg/dL (0.2-1.3); Blood Urea Nitrogen 25 mg/dL (7-17); Calcium 9.3 mg/dL (8.4-10.2); Carbon Dioxide 29 mmol/L (22-30); Chloride 104 mmol/L (98-107); Cholesterol 150 mg/dL (0-200); Estimated Glomerular Filt Rate > 60; Glucose 104 mg/dL (65-110); HDL Direct 42 mg/dL; Potassium 3.8 mmol/L (3.4-5.0); Sodium 138 mmol/L (137-145); Triglycerides 71 mg/dL (<150)
[2023-07-06 07:40] LABS: LDL Cholesterol Direct 82 mg/dL
== END 2023-07-06 07:02 | disposition home or self-care (01) ==
LOC: ANHLAB 07:03
PROVIDERS: PCP Family Medicine; Visit Provider Family Medicine
DX: E78.2 Mixed hyperlipidemia (principal); I10 Essential (primary) hypertension; R53.83 Other fatigue
CPT/HCPCS: 36415; 80053; 80061; 84443; 85025

== ENCOUNTER 2023-07-09 06:35 | Outpatient (CLI) | payer MEDICARE, MEDICAID, SELFPAY ==
[2023-07-09 07:41] LABS: Iron 115 ug/dL (37-170)
[2023-07-09 07:52] LABS: Percent Iron Saturation 34 % (20-50)
== END 2023-07-09 06:36 | disposition home or self-care (01) ==
LOC: ANHLAB 06:38
PROVIDERS: PCP Family Medicine; Visit Provider Physician Assistant
DX: D64.9 Anemia, unspecified (principal)
CPT/HCPCS: 36415; 82728; 83540; 83550

== ENCOUNTER 2023-09-07 08:09 | Outpatient (CLI) | payer MEDICARE, MEDICAID, SELFPAY ==
[2023-09-07 08:30] LABS: Basophils Percent Auto 0.3 % (0.2-1.2); Eosinophils Absolute Auto 0.1 K/mm3 (0-0.3); Eosinophils Percent Auto 1.3 % (0-4.4); Hematocrit 38.7 % (37.0-47.0); Hemoglobin 11.8 g/dL (12.0-15.0); Immature Granulocyte Absolute 0.04 K/mm3 (0.00-0.031); Immature Granulocyte Percent A 0.5 % (0-0.5); Lymphocytes Percent Auto 21.4 % (18.3-44.2); Mean Corpuscular HGB Conc 30.5 g/dl (32-36); Mean Corpuscular Hemoglobin 29.8 pg (26-34); Mean Corpuscular Volume 97.7 fl (80-100); Mean Platelet Volume 9.4 fl (7.4-10.4); Monocytes Absolute Auto 0.5 K/mm3 (0.1-0.6); Monocytes Percent Auto 6.2 % (2.6-8.5); Neutrophils Absolute Auto 5.6 K/mm3 (1.3-6.7); Neutrophils Percent Auto 70.3 % (45.5-73.1); Platelet Count Result 227 k/mm3 (150-375); Red Blood Count 3.96 M/mm3 (4.2-5.4); Red Cell Distribution Width 13.3 % (11.5-14.5)
[2023-09-07 08:39] LABS: Iron 64 ug/dL (37-170)
[2023-09-07 08:42] LABS: Alanine Aminotransferase 20 U/L (6-35); Albumin Level 4.3 g/dL (3.5-5.1); Alkaline Phosphatase 113 U/L (38-126); Anion Gap 7 mmol/L (8-16); Aspartate Amino Transferase 35 U/L (14-36); Bilirubin,Total 0.6 mg/dL (0.2-1.3); Blood Urea Nitrogen 17 mg/dL (7-17); Calcium 9.6 mg/dL (8.4-10.2); Carbon Dioxide 32 mmol/L (22-30); Chloride 103 mmol/L (98-107); Estimated Glomerular Filt Rate > 60; Glucose 92 mg/dL (65-110); Potassium 3.5 mmol/L (3.4-5.0); Sodium 142 mmol/L (137-145)
[2023-09-07 08:51] LABS: Percent Iron Saturation 17 % (20-50)
== END 2023-09-07 08:10 | disposition home or self-care (01) ==
LOC: ANHLAB 08:12
PROVIDERS: PCP Family Medicine; Visit Provider Internal Medicine Hematology & Oncology
DX: D64.9 Anemia, unspecified (principal)
CPT/HCPCS: 36415; 80053; 82728; 83540; 83550; 85025

== ENCOUNTER 2023-11-07 11:54 | Outpatient (CLI) | payer MEDICARE, MEDICAID, SELFPAY ==
--- NOTE | ~2023-11-07 | XR_ITS ---
EXAMINATION: XR knee LT 3V, XR knee RT 3V DATE: 11/07/2023 12:19 INDICATION: Bilateral artificial knee joints TECHNIQUE: 1. AP, lateral and sunrise views of the left knee were obtained 2. AP, lateral and sunrise views of the right knee were obtained COMPARISON: None. FINDINGS: There are bilateral cemented semiconstrained knee arthroplasties with patellar resurfacing which appe ar well-seated in near-anatomic alignment. No abnormal increased periprosthetic lucency to suggest lo osening or infection. Stable appearance of an irregular contour to the lower pole the right patella s uggesting an old avulsion fracture, likely healed. No acute fracture. There are bilateral small knee joint effusions. Soft tissues are unremarkable. IMPRESSION: 1. Bilateral semiconstrained total knee arthroplasties in near-anatomic alignment with small bilatera l knee joint effusion but no acute osseous abnormality. 2. Stable appearance of an irregular contour to the lower pole of the right patella suggesting an old healed avulsion fracture. Reviewed, dictated and finalized at location A. IMPRESSION: 1. Bilateral semiconstrained total knee arthroplasties in near-anatomic alignme nt with small bilateral knee joint effusion but no acute osseous abnormality. 2. Stable appearance of an irregular contour to the lower pole of the right pat ulices suggesting an old healed avulsion fracture.
== END 2023-11-07 11:55 | disposition home or self-care (01) ==
LOC: ANHIMG 11:58
PROVIDERS: PCP Family Medicine; Visit Provider Orthopaedic Surgery
DX: Z96.652 Presence of left artificial knee joint (principal); Z96.651 Presence of right artificial knee joint
CPT/HCPCS: 73562

== ENCOUNTER 2024-03-13 10:34 | Outpatient (CLI) | payer MEDICARE, MEDICAID, SELFPAY ==
[2024-03-13 10:57] LABS: Basophils Percent Auto 0.4 % (0.2-1.2); Eosinophils Absolute Auto 0.1 K/mm3 (0-0.3); Eosinophils Percent Auto 1.8 % (0-4.4); Hematocrit 36.8 % (37.0-47.0); Hemoglobin 11.6 g/dL (12.0-15.0); Immature Granulocyte Absolute 0.01 K/mm3 (0.00-0.031); Immature Granulocyte Percent A 0.1 % (0-0.5); Lymphocytes Absolute Auto 2.02 K/mm3 (0.9-3.2); Lymphocytes Percent Auto 28.7 % (18.3-44.2); Mean Corpuscular HGB Conc 31.5 g/dl (32-36); Mean Corpuscular Hemoglobin 30.1 pg (26-34); Mean Corpuscular Volume 95.6 fl (80-100); Mean Platelet Volume 9.6 fl (7.4-10.4); Monocytes Absolute Auto 0.4 K/mm3 (0.1-0.6); Monocytes Percent Auto 5.4 % (2.6-8.5); Neutrophils Absolute Auto 4.5 K/mm3 (1.3-6.7); Neutrophils Percent Auto 63.6 % (45.5-73.1); Platelet Count Result 226 k/mm3 (150-375); Red Blood Count 3.85 M/mm3 (4.2-5.4); Red Cell Distribution Width 12.6 % (11.5-14.5)
[2024-03-13 12:49] LABS: Alanine Aminotransferase 19 U/L (6-35); Albumin Level 4.3 g/dL (3.5-5.1); Alkaline Phosphatase 104 U/L (38-126); Anion Gap 9 mmol/L (4-12); Aspartate Amino Transferase 30 U/L (14-36); Bilirubin,Total 0.5 mg/dL (0.2-1.3); Blood Urea Nitrogen 20 mg/dL (7-17); Calcium 9.4 mg/dL (8.4-10.2); Carbon Dioxide 30 mmol/L (22-30); Chloride 102 mmol/L (98-107); Cholesterol 155 mg/dL (0-200); Estimated Glomerular Filt Rate > 60; Glucose 91 mg/dL (65-110); HDL Direct 43 mg/dL; Potassium 3.5 mmol/L (3.4-5.0); Sodium 141 mmol/L (137-145); Triglycerides 82 mg/dL (<150)
[2024-03-13 12:50] LABS: Iron 79 ug/dL (37-170)
[2024-03-13 12:59] LABS: Percent Iron Saturation 21 % (20-50)
[2024-03-13 13:00] LABS: LDL Cholesterol Direct 81 mg/dL
== END 2024-03-13 10:35 | disposition home or self-care (01) ==
PROVIDERS: PCP Family Medicine; Visit Provider Internal Medicine Hematology & Oncology
DX: D64.9 Anemia, unspecified (principal); R53.83 Other fatigue; E78.2 Mixed hyperlipidemia; R73.03 Prediabetes; I10 Essential (primary) hypertension
CPT/HCPCS: 36415; 80053; 80061; 82728; 83036; 83540; 83550; 84443; 85025

== ENCOUNTER 2024-10-08 09:30 | Outpatient (CLI) | payer MEDICARE, MEDICAID, SELFPAY ==
[2024-10-08 09:44] LABS: Basophils Percent Auto 0.4 % (0.2-1.2); Eosinophils Absolute Auto 0.2 K/mm3 (0-0.3); Eosinophils Percent Auto 2.6 % (0-4.4); Hematocrit 36.3 % (37.0-47.0); Hemoglobin 11.7 g/dL (12.0-15.0); Immature Granulocyte Absolute 0.03 K/mm3 (0.00-0.031); Immature Granulocyte Percent A 0.4 % (0-0.5); Lymphocytes Absolute Auto 2.47 K/mm3 (0.9-3.2); Lymphocytes Percent Auto 36.1 % (18.3-44.2); Mean Corpuscular HGB Conc 32.2 g/dl (32-36); Mean Corpuscular Hemoglobin 30.2 pg (26-34); Mean Corpuscular Volume 93.6 fl (80-100); Mean Platelet Volume 9.5 fl (7.4-10.4); Monocytes Absolute Auto 0.5 K/mm3 (0.1-0.6); Monocytes Percent Auto 6.9 % (2.6-8.5); Neutrophils Absolute Auto 3.7 K/mm3 (1.3-6.7); Neutrophils Percent Auto 53.6 % (45.5-73.1); Platelet Count Result 227 k/mm3 (150-375); Red Blood Count 3.88 M/mm3 (4.2-5.4); Red Cell Distribution Width 12.8 % (11.5-14.5); White Blood Count 6.9 K/mm3 (4.5-10.0)
--- OUTSIDE RECORDS SUMMARY | 2024-10-08 09:54 | XMS_ITS | Clinical Summary ---
Author Organization [facility] Address [address] [place] [address] Care Team Providers Care Final Canoe Inspector Name Role Phone Daria Warner MD Primary Care Provider [phone] Source Comments [facility],non-owned Affiliates and Associated Physician Practices is amultiple site organization consisting of ambulatory clinics and hospital sitesin [place], [place] and [place]. This disclosure is being madepursuant to the Care Everywhere program and may not contain all information available regarding this patient. Last updated 18.[facility] [place] Social History Tobacco Use Types Packs/Day Years Used Date Smoking Tobacco: Never Assessed Sex and Gender Information Value Date Recorded Sex Assigned at Not on file Gender Identity Not on file Sexual Orientation Not on file Plan of Treatment Health Maintenance Due Date Last Done Comments BONE DENSITY TESTING 1950 HEPATITIS C SCREENING 05/11/1966 DTAP/TDAP/TD VACCINES (1 - Tdap) 1967 PNEUMOCOCCAL VACCINE 50+ (1 of 1 - PCV) 1998 ZOSTER VACCINE (1 of 2) 1998 Respiratory Syncytial Virus (RSV) Vaccine Pt: or over 60 yrs (1 - 1-dose 75+ series) 2023 COVID-19 VACCINE ( - 2023-2 5 season) 2024 INFLUENZA VACCINE (#1) 2024 DEPRESSION SCREENING 07/22/2024 MEDICARE AWV CALENDAR YEAR 2024 HEPATITIS B VACCINE Aged Out No longe r eligible based on patient's age to complete this topic HIB VACCINE Aged Out No longer eligi ble based on patient's age to complete this topic HPV VACCINE Aged Out No longer eligi ble based on patient's age to complete this topic MENINGOCOCCAL (Group B) VACC INE SHARED DECISION-MAKING Aged Out No longer eligibl e based on patient's age to complete this topic MENINGOCOCCAL GROUPS A/C/Y/W VACCINE Aged Out No longer eligible b ased on patient's age to complete this topic Care Teams Final Canoe Inspector Relationship Specialty Start Date End Date Daria Warner MD [address] [place], [place] [phone] PCP - General 07/06/20
--- OUTSIDE RECORDS SUMMARY | 2024-10-08 09:54 | XMS_ITS | Encounter Summary ---
Author Organization [facility] Address [address] [place] [address] Care Team Providers Care Sales Assistant Institutional Sales Name Role Phone Daria Warner MD Primary Care Provider [phone] Encounter Details Date Type Department Care Team (Late st Contact Info) Description 07/07/[address] [facility] DermPath Lab [address] [place] [id number] Maryam Gonzalez MD [address] [place] [address] Social History Tobacco Use Types Packs/Day Years Used Date Smoking Tobacco: Never Assessed Sex and Gender Information Value Date Recorded Sex Assigned at Not on file Gender Identity Not on file Sexual Orientation Not on file documented as of this encounter Plan of Treatment Not on file documented as of this encounter Procedures Procedure Name Priority Date/Time Associated Diagnosis Comments DERMATOPATHOLOGY Routine 07/06/2020 12:0 0 AM RENOVATOR MACHINE OPERATOR documented in this encounter Results * DERMATOPATHOLOGY (07/06/2020 12:00 AM RENOVATOR MACHINE OPERATOR) Case Report Dermatopathology Report Case: [id number] Authorizing Provider: Maryam Gonzalez MD Collected: 07/06/2020 12:00 AM Ordering Location: [facility] Derm[facility] Lab Received: 07/07/2020 10:14 AM Pathologist: Nesha Chu MD Specimen: Skin, right thumb 0 2:32 PM RENOVATOR MACHINE OPERATOR DERMATOPATHOLOGY LABORATORY Final Diagnosis Specimen A. SKIN, right thumb: HYPERPLASTIC (HYPERTROPHIC) ACTINIC KERATOSIS (L57.0) FUNGAL YEAST FORMS IN NAIL PLATE (see microscopic description) 0 2:32 PM RENOVATOR MACHINE OPERATOR DERMATOPATHOLOGY LABORATORY Clinical History Verruca R/O SCC. Darker skin; nail plate fixed to the lesion and nail bed is present. 0 2:32 PM [facility] DERMATOPATHOLOGY LABORATORY Gross Description Specimen A: Received is one formalin filled container labeled with the patient's name and designated right thumb. The specimen consists of a nail clipping measuring [id number]. 0 2:32 PM [facility] DERMATOPATHOLOGY LABORATORY Microscopic Description Specimen A. SKIN, right thumb: There is hyperkeratosis alternating with parakeratosis. There is epithelial hyperplasia with disorderly maturation of keratinocytes with nuclear pleomorphism confined to the lower half of the epithelium. Mib-1 stain reveals proliferating keratinocytes confined to the lower half of the epithelium. The lesion fails to stain with p53. PAS highlights numerous yeast forms within the nail plate. Additional deeper sections were obtained and reviewed. 0 2:32 PM [facility] DERMATOPATHOLOGY LABORATORY Disclaimer An external and internal positive and negative controls are appropriate for the histochemical, immunohistochemical and immunofluorescence stain(s) in this case (if any), except where stated explicitly. The performance characteristics of the stain(s) cited in this report were developed and its performance characteristic determined by the Dermatopathology Laboratory at [facility], directed by Dr. Yaritza Espinoza. These tests need not be, and therefore are not, approved by the [place] Food and Drug Administration. The tests are used for clinical purposes. Billing Codes Specimen Charges Stain Charges 74856 1 84563 64650 38602 1 1 1 0 2:32 PM RENOVATOR MACHINE OPERATOR DERMATOPATHOLOGY LABORATORY Embedded Images 0 2:32 PM [facility] DERMAT[facility] Pathology/Cytolog y TISSUE SPECIMEN FROM SKIN / Unknown 07/06/2020 07/07/2020 10:14 AM RENOVATOR MACHINE OPERATOR Maryam Gonzalez MD LAB - PATHOLOGY/CYTO LOGY ORDERABLES DERMATOPATHOLOGY LABORATORY [facility] - Department of Dermatology [facility] Medicine [address] [place] [address], [address] [phone] documented in this encounter Visit Diagnoses Not on filedocumented in this encounter Care Teams Sales Assistant Institutional Sales Relationship Specialty Start Date End Date Daria Warner MD [address] [place] [address] PCP - General 07/06/20 documented as of this encounter
--- OUTSIDE RECORDS SUMMARY | 2024-10-08 09:54 | XMS_ITS | Clinical Summary ---
Author Organization [facility] Address [address] [place] [address] Care Team Providers Care Seed Sales Manager Name Role Phone Daria Warner MD Primary Care Provider [phone] Allergies No known active allergies Medications triamterene-hyd roCHLOROthiazid e (DYAZIDE) 37.5-25 mg capsule Take 1 Capsule by mouth daily in the morning. Active meloxicam (MOBIC) 15 mg tablet Take 15 mg by mouth daily. Active gabapentin (NEURONTIN) 300 mg capsule Take 300 mg by mouth 3 times daily. Active tiZANidine (ZANAFLEX) 4 mg Tablet Take 4 mg by mouth every 6 hours as needed for Spasm. Active lisinopriL (PRINIVIL) 10 mg tablet Take 10 mg by mouth daily at bedtime. 02/18/2023 Active Active Problems Problem Noted Date Diagnosed Date Chronic anemia 04/11/2022 Encounters Date Type Department Care Team Description 10/07/2024 External Device Data [facility] ABSTRACTION Provider, Abstract 09/26/2024 External Device Data [facility] ABSTRACTION Provider, Abstract 09/25/2024 External Device Data [facility] ABSTRACTION Provider, Abstract 09/23/2024 External Device Data [facility] ABSTRACTION Provider, Abstract 09/08/2024 External Device Data [facility] ABSTRACTION Provider, Abstract 08/18/2024 External Device Data [facility] ABSTRACTION Provider, Abstract 08/12/2024 External Device Data [facility] ABSTRACTION Provider, Abstract 08/12/2024 External Device Data [facility] ABSTRACTION Provider, Abstract from Last 3 Months Family History Medical History Relation Name Comments Cancer Brother 1 Cancer Sister 4 Relation Name Status Comments Brother 1 Brother 2 Brother 3 Brother 4 Alive Father Mother Sister 1 Alive Sister 2 Alive Sister 3 Alive Sister 4 Social History Tobacco Use Types Packs/Day Years Used Date Smoking Tobacco: Never Smokeless Tobacco: Never Tobacco Cessation:Counseling Given: Not Answered Alcohol Use Standard Drinks/Week Comments Never 0 (1 standard drink = 0.6 oz pur e alcohol) Comments Unknown Sex and Gender Information Value Date Recorded Sex Assigned at Female 02/26/2023 2:37 PM CDT Legal Sex Female 2:40 PM CDT Gender Identity Female 02/26/2023 2:37 PM CDT Sexual Orientation Straight 02/26/2023 2: 37 PM CDT Last Filed Vital Signs Vital Sign Reading Time Taken Comments Blood Pressure 149/80 03/18/2024 9:51 AM CDT Pulse 60 03/18/2024 9:51 AM CDT Temperature 36.7 C (98 F) 03/18/2024 9:46 AM CDT Respiratory Rate 18 03/18/2024 9:46 AM CDT Oxygen Saturation 95% 03/18/2024 9:46 AM CDT Inhaled Oxygen Concentration - - Weight 105.2 kg (232 lb) 03/18/2024 9:46 AM CDT Height 170.2 cm (5' 7 ) 04/11/2022 10:23 AM CDT Body Mass Index 36.34 04/11/2022 10:23 AM CDT Plan of Treatment Upcoming Encounters Date Type Department Care Team (Late st Contact Info) Description 10/15/2024 1:15 PM CDT Office Visit [facility] Oncology and Hematology - [address] [facility] [address] [place] [address] Kyrie Garrison MD [address] [facility] [address] [place] [address] Health Maintenance Due Date Last Done Comments DTAP/TDAP/TD VACCINES (1 - Tdap) 1967 PNEUMOCOCCAL VACCINE 50+ YEARS (1 of 1 - PCV) 05/15/19 98 ZOSTER VACCINE (1 of 2) 1998 OSTEOPOROSIS SCREENING 2013 RSV VACCINE (60+ or ) (1 - 1-dose 75+ series) 2023 INFLUENZA VACCINE (#1) 2024 [place]) Prev entative Visit/Annual Wellness Visit 07/22/2024 Insurance [facility] [id number] [place] [id number] Care Teams Seed Sales Manager Relationship Specialty Start Date End Date Daria Warner MD [address] [place] [address] PCP - General Family Practice 04/11/22
--- OUTSIDE RECORDS SUMMARY | 2024-10-08 09:54 | XMS_ITS | Encounter Summary ---
Author Organization [facility] Address [address] [place] [address] Care Team Providers Care Die Setter Name Role Phone Daria Warner MD Primary Care Provider [phone] Encounter Details Date Type Department Care Team (Late st Contact Info) Description 10/07/2024 External Device Data [facility] ABSTRACTION Provider, Abstract NO ADDRESS ON FILE Social History Tobacco Use Types Packs/Day Years Used Date Smoking Tobacco: Never Smokeless Tobacco: Never Alcohol Use Standard Drinks/Week Comments Never 0 (1 standard drink = 0.6 oz pur e alcohol) Comments Unknown Sex and Gender Information Value Date Recorded Sex Assigned at Female 02/26/2023 2:37 PM CDT Legal Sex Female 2:40 PM CDT Gender Identity Female 02/26/2023 2:37 PM CDT Sexual Orientation Straight 02/26/2023 2: 37 PM CDT documented as of this encounter Plan of Treatment Upcoming Encounters Date Type Department Care Team (Late st Contact Info) Description 10/15/2024 1:15 PM CDT Office Visit [facility] Oncology and Hematology - [address] [facility] [address] [address] Kyrie Garrison MD [address] [facility] [address] [place] [address] documented as of this encounter Visit Diagnoses Not on filedocumented in this encounter Care Teams Die Setter Relationship Specialty Start Date End Date Daria Warner MD [address] [place] [address] PCP - General Family Practice 9/21/22 documented as of this encounter
[2024-10-08 12:05] LABS: Iron 80 ug/dL (37-170)
[2024-10-08 12:09] LABS: Anion Gap 6 mmol/L (4-12); Blood Urea Nitrogen 18 mg/dL (7-17); Calcium 9.6 mg/dL (8.4-10.2); Carbon Dioxide 32 mmol/L (22-30); Chloride 103 mmol/L (98-107); Estimated Glomerular Filt Rate > 60; Glucose 91 mg/dL (65-110); Potassium 4.4 mmol/L (3.4-5.0); Sodium 141 mmol/L (137-145)
[2024-10-08 12:17] LABS: Percent Iron Saturation 22 % (20-50)
[2024-10-08 13:20] LABS: Folic Acid > 20.0 ng/mL (2.76->20)
== END 2024-10-08 09:31 | disposition home or self-care (01) ==
LOC: ANHLAB 09:31
PROVIDERS: PCP Family Medicine; Visit Provider Internal Medicine Hematology & Oncology
DX: D64.9 Anemia, unspecified (principal)
CPT/HCPCS: 36415; 80048; 82607; 82728; 82746; 83540; 83550; 85025

== ENCOUNTER 2024-12-01 10:02 | Outpatient (CLI) | payer MEDICARE, SELFPAY ==
--- OUTSIDE RECORDS SUMMARY | 2024-12-01 10:17 | XMS_ITS | Encounter Summary ---
Author Organization [facility] Address [address] [place] [address] Care Team Providers Care Lead Producer Name Role Phone Daria Warner MD Primary Care Provider [phone] Encounter Details Date Type Department Care Team (Late st Contact Info) Description 07/07/2020 Lab Requisition [facility] DermPath Lab [address] [place] [phone] Maryam Gonzalez MD [address] [place] [address] Social History Tobacco Use Types Packs/Day Years Used Date Smoking Tobacco: Never Assessed Comments Unknown Sex and Gender Information Value Date Recorded Sex Assigned at Not on file Legal Sex Female 1:55 PM ACCOUNT ADVISOR Gender Identity Not on file Sexual Orientation Not on file documented as of this encounter Plan of Treatment Not on file documented as of this encounter Procedures Procedure Name Priority Date/Time Associated Diagnosis Comments DERMATOPATHOLOGY Routine 07/06/2020 12:0 0 AM ACCOUNT ADVISOR documented in this encounter Results * DERMATOPATHOLOGY (07/06/2020 12:00 AM ACCOUNT ADVISOR) Case Report Dermatopathology Report Case: [id number] Authorizing Provider: Maryam Gonzalez MD Collected: 07/06/2020 12:00 AM Ordering Location: [facility] DermPath Lab Received: 07/07/2020 10:14 AM Pathologist: Nesha Chu MD Specimen: Skin, right thumb 0 2:32 PM ACCOUNT ADVISOR DERMATOPATHOLOGY LABORATORY Final Diagnosis Specimen A. SKIN, right thumb: HYPERPLASTIC (HYPERTROPHIC) ACTINIC KERATOSIS (L57.0) FUNGAL YEAST FORMS IN NAIL PLATE (see microscopic description) 0 2:32 PM ACCOUNT ADVISOR DERMATOPATHOLOGY LABORATORY Clinical History Verruca R/O SCC. Darker skin; nail plate fixed to the lesion and nail bed is present. 0 2:32 PM [facility] DERMATOPATHOLOGY LABORATORY Gross Description Specimen A: Received is one formalin filled container labeled with the patient's name and designated right thumb. The specimen consists of a nail clipping measuring [id number]. 0 2:32 PM ACCOUNT ADVISOR DERMATOPATHOLOGY LABORATORY Microscopic Description Specimen A. SKIN, [...] were obtained and reviewed. 0 2:32 PM ACCOUNT ADVISOR DERMATOPATHOLOGY LABORATORY Disclaimer An external and internal positive and negative controls are appropriate for the histochemical, immunohistochemical and immunofluorescence stain(s) in this case (if any), except where stated explicitly. The performance characteristics of the stain(s) cited in this report were developed and its performance characteristic determined by the Dermatopathology Laboratory at [facility], directed by Dr. Yaritza Espinoza. These tests need not be, and therefore are not, approved by the [place] Food and Drug Administration. The tests are used for clinical purposes. Billing Codes Specimen Charges Stain Charges 30785 1 03404 [id number] [id number] 1 1 1 0 2:32 PM ACCOUNT ADVISOR DERMATOPATHOLOGY LABORATORY Embedded Images 0 2:32 PM ACCOUNT ADVISOR DERMATOPATHOLOGY LABORATORY Pathology/Cytolog y TISSUE SPECIMEN FROM SKIN / Unknown 07/06/2020 07/07/2020 10:14 AM ACCOUNT ADVISOR Maryam Gonzalez MD LAB - PATHOLOGY/CYTOLOGY ORDERA BLES Final Result DERMATOPATHOLOGY LABORATORY [facility] - Department of Dermatology [address], [address] [phone] documented in this encounter Visit Diagnoses Not on filedocumented in this encounter Care Teams Lead Producer Relationship Specialty Start Date End Date Daria Warner MD [address] [place] [address] PCP - General 07/06/20 documented as of this encounter
--- OUTSIDE RECORDS SUMMARY | 2024-12-01 10:17 | XMS_ITS | Clinical Summary ---
Author Organization [facility] Address [address] [place] [address] Care Team Providers Care Transformer Tester Name Role Phone Daria Warner MD Primary Care Provider [phone] Allergies No known active allergies Medications triamterene-hyd [...] Encounters Date Type Department Care Team Description 10/15/2024 1:15 PM CDT Office Visit [facility] Oncology and Hematology - [address] [place] [address] Kyrie Garrison MD Chronic anemia (Primary Dx) 10/12/2024 Orders Only [facility] Oncology and Hematology - [address] [facility] [place] [place] [address] Kyrie Garrison MD 10/09/2024 Orders Only [facility] Oncology and Hematology - [address] [place] [address] Kyrie Garrison MD 10/07/2024 External Device Data STL ABSTRACTION Provider, [...] Sign Reading Time Taken Comments Blood Pressure 147/74 10/15/2024 1:12 PM CDT Pulse 66 10/15/2024 1:10 PM CDT Temperature 35.6 C (96.1 F) 10/15/2024 1:10 PM CDT Respiratory Rate 15 10/15/2024 1:10 PM CDT Oxygen Saturation 94% 10/15/2024 1:10 PM CDT Inhaled Oxygen Concentration - - Weight 99.4 kg (219 lb 3.2 oz) 10/15/2024 1:10 P M CDT Height 170.2 cm (5' 7 ) 04/11/2022 10:23 AM CDT Body Mass Index 34.33 04/11/2022 10:23 AM CDT Plan of Treatment Upcoming Encounters Date Type Department Care Team (Late st Contact Info) Description 04/23/2025 8:45 AM CDT Office Visit [facility] Oncology and Hematology - [address] [place] [address] Kyrie Garrison MD [address] [facility] [address] [place] [address] Health Maintenance Due Date Last Done Comments DTAP/TDAP/TD VACCINES (1 - Tdap) 1967 PNEUMOCOCCAL VACCINE 50+ YEARS (1 of 1 - PCV) 05/15/19 98 ZOSTER VACCINE (1 of 2) 1998 OSTEOPOROSIS SCREENING 2013 RSV VACCINE (60+ or ) (1 - 1-dose 75+ series) 2023 INFLUENZA VACCINE (#1) 2024 Procedures Procedure Name Priority Date/Time Associated Diagnosis Comments CBC WITH DIFFERENTIAL Routine 10/08/2024 12:36 PM CDT BASIC METABOLIC PANEL Routine 10/08/2024 11:21 AM CDT from Last 3 Months Results * CBC WITH DIFFERENTIAL (10/08/2024 12:36 PM CDT) Blood us Kyrie Garrison MD HEMATOLOGY ORDERABLES Final Res ult * BASIC METABOLIC PANEL (10/08/2024 11:21 AM CDT) Blood us Kyrie Garrison MD CHEMISTRY ORDERABLES Final Resu lt from Last 3 Months Insurance [facility] [id number] Care Teams Transformer Tester Relationship Specialty Start Date End Date Daria Warner MD [address] [place] [phone] PCP - General Family Practice 04/11/22
--- OUTSIDE RECORDS SUMMARY | 2024-12-01 10:17 | XMS_ITS | Clinical Summary ---
Author Organization [facility] Address [address] [place] [address] Care Team Providers Care Auto Repair Technician Name Role Phone Daria Warner MD Primary Care Provider [phone] Source Comments [facility],non-owned Affiliates and Associated Physician Practices is amultiple site organization consisting of ambulatory clinics and hospital sitesin [place], [place], [place] and [place]. This disclosure is being madepursuant to the Care Everywhere program and may not contain all information available regarding this patient. Last updated 18.[facility] [employer]api Social History Tobacco Use Types Packs/Day Years Used Date Smoking Tobacco: Never Assessed Comments Unknown Sex and Gender Information Value Date Recorded Sex Assigned at Not on file Legal Sex Female 1:55 PM CLEATER Gender Identity Not on file Sexual Orientation [...] VACCINE ( - 2023-2 5 season) 2024 DEPRESSION SCREENING 07/22/2024 INFLUENZA VACCINE (Season Ended) 2025 HEPATITIS B VACCINE Aged Out No longe [...] on patient's age to complete this topic Insurance MEDICARE UHC MANAGED MEDICARE ADV Care Teams Auto Repair Technician Relationship Specialty Start Date End Date Daria Warner MD [address] [place] [address] PCP - General 07/06/20
[2024-12-01 11:23] LABS: Hemoglobin A1C 4.9 % (<5.7)
[2024-12-01 11:24] LABS: Alanine Aminotransferase 22 U/L (6-35); Alkaline Phosphatase 101 U/L (38-126); Anion Gap 7 mmol/L (4-12); Aspartate Amino Transferase 32 U/L (14-36); Bilirubin,Total 0.5 mg/dL (0.2-1.3); Blood Urea Nitrogen 18 mg/dL (7-17); Calcium 9.1 mg/dL (8.4-10.2); Carbon Dioxide 30 mmol/L (22-30); Chloride 105 mmol/L (98-107); Cholesterol 154 mg/dL (0-200); Estimated Glomerular Filt Rate > 60; Glucose 89 mg/dL (65-110); HDL Direct 53 mg/dL; Potassium 4.2 mmol/L (3.4-5.0); Sodium 142 mmol/L (137-145); Triglycerides 62 mg/dL (<150)
[2024-12-01 11:35] LABS: LDL Cholesterol Direct 70 mg/dL
== END 2024-12-01 10:03 | disposition home or self-care (01) ==
PROVIDERS: PCP Family Medicine; Visit Provider Family Medicine
DX: R73.03 Prediabetes (principal); E78.2 Mixed hyperlipidemia; I10 Essential (primary) hypertension; R53.83 Other fatigue
CPT/HCPCS: 36415; 80053; 80061; 83036; 84443

== ENCOUNTER 2025-02-13 06:08 | Emergency (ER) | payer MEDICARE, MEDICAID, SELFPAY ==
--- OUTSIDE RECORDS SUMMARY | 2025-02-13 06:11 | XMS_ITS | Clinical Summary ---
Author Organization [facility] princess [facility] Address [address] [place] [address] Care Team Providers Care Training Development Manager Name Role Phone Daria Warner MD Primary Care Provider [phone] Allergies No known active allergies Medications triamterene-hyd [...] Encounters Date Type Department Care Team Description 02/03/2025 External Device Data ST[facility] ABSTRACTION Provider, Abstract 02/02/2025 External Device Data ST[facility] ABSTRACTION Provider, Abstract 01/12/2025 External Device Data ST[facility] ABSTRACTION Provider, Abstract 01/05/2025 External Device Data [facility] ABSTRACTION Provider, Abstract 12/15/2024 External Device Data ST[facility] ABSTRACTION Provider, Abstract 12/10/2024 External Device Data STL ABSTRACTION Provider, Abstract 12/09/2024 External Device Data ST[facility] ABSTRACTION Provider, Abstract 12/08/2024 External Device Data STL ABSTRACTION Provider, Abstract [...] P M CDT Height 170.2 cm (5' 7) 04/11/2022 10:23 AM CDT Body Mass Index 34.33 04/11/2022 10:23 AM CDT Plan of Treatment Health Maintenance Due Date Last Done Comments DTAP/TDAP/TD VACCINES (1 - Tdap) 1967 PNEUMOCOCCAL VACCINE 50+ YEARS (1 of 1 - PCV) 05/15/19 98 ZOSTER VACCINE (1 of 2) 1998 OSTEOPOROSIS SCREENING 2013 RSV VACCINE (60+ or ) (1 - 1-dose 75+ series) 2023 INFLUENZA VACCINE (#1) 2025 Insurance [facility] [id number] Care Teams Training Development Manager Relationship Specialty Start Date End Date Daria Warner MD [address] [place] [address] PCP - General Family Practice 04/11/22
--- OUTSIDE RECORDS SUMMARY | 2025-02-13 06:11 | XMS_ITS | Encounter Summary ---
Author Organization [facility] Address [address] [place] [address] Care Team Providers Care Flexographic Printing Press Operator Name Role Phone Daria Warner MD Primary Care Provider [phone] Encounter Details Date Type Department Care Team (Late st Contact Info) Description 07/07/[address] [facility] [address] [place] [phone] Maryam Gonzalez MD [address] [place] [address] Social History Tobacco Use Types Packs/Day Years Used Date Smoking Tobacco: Never Assessed Comments Unknown Sex and Gender Information Value Date Recorded Sex Assigned at Not on file Legal Sex Female 1:55 PM HEAT TREAT FURNACE OPERATOR Gender Identity Not on file Sexual Orientation Not on file documented as of this encounter Plan of Treatment Not on file documented as of this encounter Procedures Procedure Name Priority Date/Time Associated Diagnosis Comments DERMATOPATHOLOGY Routine 07/06/2020 12:0 0 AM HEAT TREAT FURNACE OPERATOR documented in this encounter Results * DERMATOPATHOLOGY (07/06/2020 12:00 AM HEAT TREAT FURNACE OPERATOR) Case Report Dermatopathology Report Case: [id number] Authorizing Provider: Maryam Gonzalez MD Collected: 07/06/2020 12:00 AM Ordering Location: [facility] Received: 07/07/2020 10:14 AM Pathologist: Nesha Chu MD Specimen: Skin, right thumb 0 2:32 PM HEAT TREAT FURNACE OPERATOR DERMATOPATHOLOGY LABORATORY Final Diagnosis Specimen A. SKIN, right thumb: HYPERPLASTIC (HYPERTROPHIC) ACTINIC KERATOSIS (L57.0) FUNGAL YEAST FORMS IN NAIL PLATE (see microscopic description) 0 2:32 PM HEAT TREAT FURNACE OPERATOR DERMATOPATHOLOGY LABORATORY at 1432 HEAT TREAT FURNACE OPERATOR Clinical History Verruca R/O SCC. Darker skin; nail plate fixed to the lesion and nail bed is present. 0 2:32 PM HEAT TREAT FURNACE OPERATOR DERMATOPATHOLOGY LABORATORY Gross Description Specimen A: Received is one formalin filled container labeled with the patient's name and designated right thumb. The specimen consists of a nail clipping measuring [id number]. 0 2:32 PM HEAT TREAT FURNACE OPERATOR DERMATOPATHOLOGY LABORATORY Microscopic Description Specimen A. SKIN, [...] were obtained and reviewed. 0 2:32 PM HEAT TREAT FURNACE OPERATOR DERMATOPATHOLOGY LABORATORY Disclaimer An external and internal positive and negative controls are appropriate for the histochemical, immunohistochemical and immunofluorescence stain(s) in this case (if any), except where stated explicitly. The performance characteristics of the stain(s) cited in this report were developed and its performance characteristic determined by the Dermatopathology Laboratory at [facility], directed by Dr. Yaritza Espinoza. These tests need not be, and therefore are not, approved by the [place] Food and Drug Administration. The tests are used for clinical purposes. Billing Codes Specimen Charges Stain Charges 15744 1 20806 28057 13436 1 1 1 0 2:32 PM HEAT TREAT FURNACE OPERATOR DERMATOPATHOLOGY LABORATORY Embedded Images 0 2:32 PM HEAT TREAT FURNACE OPERATOR DERMATOPATHOLOGY LABORATORY Pathology/Cytolog y TISSUE SPECIMEN FROM SKIN / Unknown 07/06/2020 07/07/2020 10:14 AM HEAT TREAT FURNACE OPERATOR Maryam Gonzalez MD LAB - PATHOLOGY/CYTOLOGY ORDERA BLES Final Result DERMATOPATHOLOGY LABORATORY [facility] - Department of Dermatology [address], [address] [phone] documented in this encounter Visit Diagnoses Not on filedocumented in this encounter Care Teams Flexographic Printing Press Operator Relationship Specialty Start Date End Date Daria Warner MD [address] [place] [address] PCP - General 07/06/20 documented as of this encounter
--- OUTSIDE RECORDS SUMMARY | 2025-02-13 06:11 | XMS_ITS | Clinical Summary ---
Author Organization [facility] Address [address] [place] [address] Care Team Providers Care Emergency Medicine Medical Director Name Role Phone Daria Warner MD Primary Care Provider [phone] Source Comments [facility],non-owned Affiliates and Associated Physician Practices is amultiple site organization consisting of ambulatory clinics and hospital sitesin [place], [place], [place] and [place]. This disclosure is being madepursuant to the Care Everywhere program and may not contain all information available regarding this patient. Last updated 18.[facility] [employer] Social History Tobacco Use Types Packs/Day Years Used Date Smoking Tobacco: Never Assessed Comments Unknown Sex and Gender Information Value Date Recorded Sex Assigned at Not on file Legal Sex Female 1:55 PM MICROSOFT NET DEVELOPER Gender Identity Not on file Sexual Orientation [...] season) 2024 DEPRESSION SCREENING 07/22/2024 INFLUENZA VACCINE (#1) 2025 HEPATITIS B VACCINE Aged Out No [...] MEDICARE UHC MANAGED MEDICARE ADV Care Teams Emergency Medicine Medical Director Relationship Specialty Start Date End Date Daria Warner MD [address] [place] [address] PCP - General 07/06/20
[2025-02-13 06:14] VITALS: BP 187/94; PULSE 68; RESP 18; TEMP 37.1; O2SAT 98
--- NOTE | 2025-02-13 07:25 | ECG_ITS ---
Test Date: 2025-02-13 07:30:44 Measurements Intervals [place] Rate: 65 P: 21 UT: 231 QRS: -58 QRSD: 116 T: 27 QT: 443 QTc: 461 Interpretive Statements SINUS RHYTHM WITH FIRST DEGREE AV BLOCK PATTERN CONSISTENT WITH PULMONARY DISEASE LEFT ANTERIOR FASCICULAR BLOCK [QRS AXIS <= -45, QR IN I, RS IN II] VOLTAGE CRITERIA FOR LVH [MEETS CRITERIA IN ONE OF: R(aVL), S(V1), R(V5), R(V5/V6)+S(V1)] NONSPECIFIC T-WAVE ABNORMALITY No previous ECG available for comparison Electronically Signed On 02-14-2025 14:04:04 CDT by Chas [place] M.D.
--- NOTE | 2025-02-13 07:26 | ED.GENADULT ---
HPI - General Adult General Chief complaint: Unspecified Stated complaint: high blood pressure Time Seen by Provider: 02/13/25 06:54 History of Present Illness HPI narrative: 74-year-old female presenting to the emergency department for evaluation for elevated blood pressure. Patient takes her blood pressure medications at approximately 5:30 a.m. in the morning. Patient did take her medications in immediately checked her blood pressure and found it to be in the 190 systolic. Patient's blood pressure was still elevated upon arrival to the emergency department at 6:14 a.m.. Repeat blood pressures show she has had significant improvement in her blood pressure. Most recent value was 146/80. At time of evaluation patient denies any chest pain or shortness of breath. Patient states she does have some sensation of lightheadedness but also suspect some of this may be secondary to anxiety. Patient did have some elevated blood pressures the other day that were in a similar range, patient did contact her primary care physician she was told to check her blood pressure more frequently. Related Data Home Medications ?Medication ?Instructions ?Recorded ?Confirmed ?Last Taken ?Type multivitamin 1 tablet PO DAILY 02/21/22 02/13/25 02/12/25 History red yeast rice 600 mg tablet 600 mg PO DAILY 02/21/22 02/13/25 02/12/25 History terbinafine HCl 250 mg tablet 250 mg PO .once a week 11/07/22 02/13/25 Unknown History ascorbate calcium (vitamin C) 500 500 mg PO DAILY 02/18/23 02/13/25 02/12/25 History mg tablet Allergies Allergy/AdvReac Type Severity Reaction Status Date / Time No Known Allergies Allergy Verified 02/13/25 06:18 Review of Systems Review of Systems: All systems reviewed & are unremarkable except as noted in HPI and below [facility] Past Medical History Medical History Localized swelling of both lower legs Primary osteoarthritis of right knee Cervical spondylosis with radiculopathy Orthopedic aftercare for joint replacement DVT prophylaxis Sinus tachycardia Fatigue Left knee pain Nail deformity Seborrheic keratosis Sciatica Knee osteoarthritis Hypertension Surgical History Surgical History Status post total right knee replacement (~03/12/22) History of carpal tunnel surgery History of hysterectomy History of bladder surgery History of cholecystectomy Status post total left knee replacement (~11/07/21) Family History Family History Father Family history of emphysema Patient's father is Asthma Mother Patient's mother is Congestive heart failure Social History Social History Social History: lives in her apartment alone 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 Daria DANIELSA: Becky (daughter) Code status: Full code Smoking status: Never smoker Second hand tobacco smoke exposure: No Alcohol intake: never Substance use: never Substance use type: does not use Do You Feel Safe in your Home?: Yes Lack of Transportation: No Lack of Food: Never True Current Housing: I Have Housing Concerned About Future Housing: No Difficulty Paying Gas/Electric Bills: No Difficulty Paying for Meds: No Currently Unemployed: No Education: Master's Degree or Higher Difficulty w/ Childcare or Family Care: No Living arrangements: alone Gender identity (if verbalized by the patient): Female Spiritual care concerns: No Agree to blood products: Yes Exam Narrative: APPEARANCE: Well appearing, no pain, no distress, well-nourished. HEAD: normocephalic, atraumatic. EYES: PERRLA/EOMI, conjunctivae clear. NOSE: Normal no drainage EARS:TMS clear with good light reflex. THROAT: Pharynx clear, no exudate. NECK: Supple. No adenopathy, no masses. RESPIRATORY: Airway patent, respirations nonlabored. Clear to auscultation bilaterally, no rales, rhonchi, wheezing. CARDIOVASCULAR: Regular rate and rhythm without murmurs rubs or gallops. ABDOMINAL: Soft, nontender, nondistended, normal bowel sounds MUSCULOSKELETAL: Moves all extremities. Strength/ROM intact, No edema, No calf tenderness. NEURO: Alert. Cranial nerves II through XII intact. Good gait. Good coordination SKIN: Warm, dry. Normal Color PSYCHIATRIC: Normal affect/mood. Course Vital Signs Vital signs: Vital Signs Temperature 98.7 F 02/13/25 06:14 Pulse Rate 68 02/13/25 06:14 Respiratory Rate 18 02/13/25 06:14 Blood Pressure 187/94 H 02/13/25 06:14 Pulse Oximetry 98 02/13/25 06:14 Oxygen Delivery Room Air 02/13/25 06:14 Temperature 98.7 F 02/13/25 06:14 Pulse Rate 67 02/13/25 08:05 Respiratory Rate 17 02/13/25 08:05 Blood Pressure 150/82 H 02/13/25 08:05 Pulse Oximetry 94 02/13/25 08:05 Oxygen Delivery Room Air 02/13/25 06:14 Medical Decision Making MDM Narrative Medical decision making narrative: 74-year-old female presents emergency department for evaluation for hypertension. Patient did check her blood pressure minutes after taking her blood pressure medication. 1 hour after taking her blood pressure medication the blood pressure was improved. At time of evaluation patient denies any complaints. Patient had EKG that shows normal sinus rhythm with no evidence of acute infarction. Patient was able to ambulate the emergency department without issues. Patient denies any chest pain shortness of breath lightheaded dizziness with ambulation. Patient was encouraged to have close follow-up with her primary care physician. Differential Diagnosis Differential Diagnosis: Hypertensive urgency, hypertensive crisis, medication noncompliance, asymptomatic hypertension, mi Vital Signs Vital Signs: Vital Signs Temperature 98.7 F 02/13/25 06:14 Pulse Rate 68 02/13/25 06:14 Respiratory Rate 18 02/13/25 06:14 Blood Pressure 187/94 H 02/13/25 06:14 Pulse Oximetry 98 02/13/25 06:14 Oxygen Delivery Room Air 02/13/25 06:14 Temperature 98.7 F 02/13/25 06:14 Pulse Rate 67 02/13/25 08:05 Respiratory Rate 17 02/13/25 08:05 Blood Pressure 150/82 H 02/13/25 08:05 Pulse Oximetry 94 02/13/25 08:05 Oxygen Delivery Room Air 02/13/25 06:14 ECG Data EKG #1: EKG Interpretation: normal rate, sinus rhythm, no ectopy, non-specific ST changes, normal QRS and NL axis Discharge Plan Discharge Clinical Impression: Hypertension Patient Disposition: Home Condition: Stable Instructions: Antibiotic Form, Hypertension (ED) Additional Instructions: Continue to take your blood pressure medication as directed. Patient Language: Cambodian Prescriptions: No Action ascorbate calcium (vitamin C) 500 mg tablet 500 mg PO DAILY terbinafine HCl 250 mg tablet 250 mg PO .once a week gabapentin 300 mg capsule 1,200 mg PO DAILY Qty: 360 1RF lisinopril 20 mg tablet 20 mg PO DAILY Qty: 90 1RF multivitamin Tablet 1 tablet PO DAILY red yeast rice 600 mg Tablet 600 mg PO DAILY Rx Instructions: give with meal/snack triamterene-hydrochlorothiazid 37.5-25 mg tablet 0.5 tablet PO DAILY Qty: 90 3RF meloxicam 15 mg tablet See Rx Instructions .ROUTE .COMPLEX Qty: 100 2RF Dose Instruction: TAKE 1 TABLET BY MOUTH DAILY Rx Instructions: TAKE 1 TABLET BY MOUTH DAILY Follow-up/Referrals: Daria Warner MD [Primary Care Provider] -
--- OUTSIDE RECORDS SUMMARY | 2025-02-13 07:27 | XMS_ITS | Clinical Summary ---
Author Organization [facility] Address [address] [place] [address] Care Team Providers Care Sheet Metal Pattern Cutter Name Role Phone Daria Warner MD Primary Care Provider [phone] Source Comments [facility],non-owned Affiliates and Associated Physician Practices is amultiple site organization consisting of ambulatory clinics and hospital sitesin [place], [place], [place] and [place]. This disclosure is being madepursuant to the Care Everywhere program and may not contain all information available regarding this patient. Last updated 18.[facility] [employer] Social History Tobacco Use Types Packs/Day Years Used Date Smoking Tobacco: Never Assessed Comments Unknown Sex and Gender Information Value Date Recorded Sex Assigned at Not on file Legal Sex Female 1:55 PM HOTEL CASINO FLOORPERSON Gender Identity Not on file Sexual Orientation [...] MEDICARE UHC MANAGED MEDICARE ADV Care Teams Sheet Metal Pattern Cutter Relationship Specialty Start Date End Date Daria Warner MD [address] [place] [address] PCP - General 07/06/20
--- OUTSIDE RECORDS SUMMARY | 2025-02-13 07:27 | XMS_ITS | Encounter Summary ---
Author Organization [facility] Address [address] [place] [place] [address] Care Team Providers Care Recreation Program Coordinator Name Role Phone Daria Warner MD Primary Care Provider [phone] Encounter Details Date Type Department Care Team (Late st Contact Info) Description 07/07/2020 Lab Requisition [facility] [address] [place] [phone] Maryam Gonzalez MD [address] [place] [address] Social History Tobacco Use Types Packs/Day Years Used Date Smoking Tobacco: Never Assessed Comments Unknown Sex and Gender Information Value Date Recorded Sex Assigned at Not on file Legal Sex Female 1:55 PM FISHING ROD MECHANIC Gender Identity Not on file Sexual Orientation Not on file documented as of this encounter Plan of Treatment Not on file documented as of this encounter Procedures Procedure Name Priority Date/Time Associated Diagnosis Comments DERMATOPATHOLOGY Routine 07/06/2020 12:0 0 AM FISHING ROD MECHANIC documented in this encounter Results * DERMATOPATHOLOGY (07/06/2020 12:00 AM FISHING ROD MECHANIC) Case Report Dermatopathology Report Case: [id number] Authorizing Provider: Maryam Gonzalez MD Collected: 07/06/2020 12:00 AM Ordering Location: [facility] Received: 07/07/2020 10:14 AM Pathologist: Nesha Chu MD Specimen: Skin, right thumb 0 2:32 PM FISHING ROD MECHANIC DERMATOPATHOLOGY LABORATORY Final Diagnosis Specimen A. SKIN, right thumb: HYPERPLASTIC (HYPERTROPHIC) ACTINIC KERATOSIS (L57.0) FUNGAL YEAST FORMS IN NAIL PLATE (see microscopic description) 0 2:32 PM FISHING ROD MECHANIC DERMATOPATHOLOGY LABORATORY at [address]32 FISHING ROD MECHANIC Clinical History Verruca R/O SCC. Darker skin; nail plate fixed to the lesion and nail bed is present. 0 2:32 PM FISHING ROD MECHANIC DERMATOPATHOLOGY LABORATORY Gross Description Specimen A: Received is one formalin filled container labeled with the patient's name and designated right thumb. The specimen consists of a nail clipping measuring [id number]. 0 2:32 PM FISHING ROD MECHANIC DERMATOPATHOLOGY LABORATORY Microscopic Description Specimen A. SKIN, [...] were obtained and reviewed. 0 2:32 PM FISHING ROD MECHANIC DERMATOPATHOLOGY LABORATORY Disclaimer An external and internal positive and negative controls are appropriate for the histochemical, immunohistochemical and immunofluorescence stain(s) in this case (if any), except where stated explicitly. The performance characteristics of the stain(s) cited in this report were developed and its performance characteristic determined by the Dermatopathology Laboratory at [facility], directed by Dr. Yaritza Espinoza. These tests need not be, and therefore are not, approved by the [place] Food and Drug Administration. The tests are used for clinical purposes. Billing Codes Specimen Charges Stain Charges 97588 1 01469 40426 54126 1 1 1 0 2:32 PM FISHING ROD MECHANIC DERMATOPATHOLOGY LABORATORY Embedded Images 0 2:32 PM FISHING ROD MECHANIC DERMATOPATHOLOGY LABORATORY Pathology/Cytolog y TISSUE SPECIMEN FROM SKIN / Unknown 07/06/2020 07/07/2020 10:14 AM FISHING ROD MECHANIC Maryam Gonzalez MD LAB - PATHOLOGY/CYTOLOGY ORDERA BLES Final Result DERMATOPATHOLOGY LABORATORY [facility] - Department of Dermatology [address] [phone] documented in this encounter Visit Diagnoses Not on filedocumented in this encounter Care Teams Recreation Program Coordinator Relationship Specialty Start Date End Date Daria Warner MD [address] [place] [address] PCP - General 07/06/20 documented as of this encounter
--- OUTSIDE RECORDS SUMMARY | 2025-02-13 07:28 | XMS_ITS | Clinical Summary ---
Author Organization [facility] princess [facility] Address [address] [place] [address] Care Team Providers Care Director Talent Management Name Role Phone Daria Warner MD Primary Care Provider [phone] Allergies No known active allergies Medications triamterene-hyd [...] series) 2023 INFLUENZA VACCINE (#1) 2025 Insurance [facility] [id number] Care Teams Director Talent Management Relationship Specialty Start Date End Date Daria Warner MD [address] [place] [address] PCP - General Family Practice 04/11/22
[2025-02-13 08:05] VITALS: BP 150/82; PULSE 67; RESP 17; O2SAT 94
== END 2025-02-13 08:06 | disposition home or self-care (01) ==
PROVIDERS: Emergency Provider Emergency Medicine; PCP Family Medicine
DX: I10 Essential (primary) hypertension (principal)
CPT/HCPCS: 93005; 99283